=== PATIENT | male | born 1935 | race Caucasian/White ===

== ENCOUNTER 2021-07-31 04:43 | Emergency (ER) | payer OTHER ==
[2021-07-31 05:31] LABS: Urine Blood 3+ (Negative); Urine Glucose Negative (Negative); Urine Protein 2+ (Negative); Urine Specific Gravity >=1.030 (1.005-1.030)
[2021-07-31 06:07] LABS: Urine Bacteria >50 /HPF (NONE SEEN)
[2021-07-31 06:08] LABS: Urine RBC 20-50 /HPF (NONE SEEN); Urine Urothelial Cells <5 /HPF (NONE SEEN)
[2021-07-31] MEDS ORDERED: NA CHLORIDE 0.9% 1,000 ML ONE (06:27)
[2021-07-31] MEDS ORDERED: ACETAMINOPHEN 500 MG TAB ONE (06:27)
[2021-07-31] MEDS ORDERED: CEFTRIAXONE 1000 MG/VIAL ONE (06:27)
[2021-07-31 06:46] LABS: Absolute Lymphocytes (CBC) 0.7 K/uL (0.7-4.9); Basophils % 0.5 % (0-1.3); Hematocrit 46.1 % (39.6-49.0); MPV 8.3 fL (7.6-11.3); RBC Red Blood Cell Count 5.04 M/uL (4.33-5.43)
[2021-07-31 07:01] LABS: ALT/SGPT 27 U/L (12-78); AST/SGOT 16 U/L (15-37); Albumin 4.1 g/dL (3.4-5.0); Alkaline Phosphatase 80 U/L (45-117); BUN Blood Urea Nitrogen 19 mg/dL (7-18); Bicarbonate 27 mmol/L (21-32); Bilirubin Direct 0.2 mg/dL (0-0.2); Bilirubin Total 0.7 mg/dL (0.2-1.0); Glucose Level 125 mg/dL (74-106); Protein, Total 7.5 g/dL (6.4-8.2); Sodium Level 142 mmol/L (136-145)
--- NOTE | 2021-07-31 07:58 | RAD REPORT ---
EXAM DESCRIPTION: CT - Abdomen Pelvis W Contrast - 07/31/2021 7:34 am CLINICAL HISTORY: Abdominal pain/urinary retention COMPARISON: none. TECHNIQUE: Computed axial tomography of the abdomen pelvis was obtained. 100 cc Isovue-300 was admin istered intravenously. Oral contrast was not requested which limits evaluation of bowel. All CT scans are performed using dose optimization technique as appropriate and may include automated exposure control or mA/KV adjustment according to patient size. FINDINGS: The liver, spleen, pancreas, adrenal and kidneys appear unremarkable. There is no evidence of diverticulitis. Moderate amount of stool within the colon. The prostate gland is moderately to markedly enlarged. Chávez catheter within the bladder Small to moderate bilateral inguinal hernias contain fat IMPRESSION: Moderate amount stool within the colon Moderate to marked prostatic enlargement.
--- NOTE | 2021-07-31 08:31 | ER ---
Nurse's Notes [facility] Name: Tom Diaz Age: 85 yrs Sex: Male : 1935 Arrival Date: 07/31/2021 Time: 04:50 Bed 30 Private MD: Diagnosis: UTI/ Urinary tract infection, site not specified Presentation: 07/31 05:02 Chief complaint: Patient states: Urinary retention x 2 days, reports having urology lp1 procedure on 07/28/21 for enlarged prostate; States only drops when attempting to urinate. Coronavirus screen: At this time, the client does not indicate any symptoms associated with coronavirus-19. Ebola Screen: No symptoms or risks identified at this time. Initial Sepsis Screen: Does the patient meet any 2 criteria? No. Patient's initial sepsis screen is negative. Does the patient have a suspected source of infection? No. Patient's initial sepsis screen is negative. Risk Assessment: Do you want to hurt yourself or someone else? Patient reports no desire to harm self or others. Onset of symptoms was July 31, 2021. 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 - Social history:: Smoking status: Patient denies any tobacco usage or history of. Screenin:05 Abuse screen: Denies threats or abuse. Denies injuries from another. Nutritional lp1 screening: No deficits noted. Tuberculosis screening: No symptoms or risk factors identified. 05:15 Fall Risk None identified. cc4 Assessment: 05:15 General: Appears uncomfortable, Behavior is calm, cooperative. Pain: Complains of pain cc4 in pelvis Pain does not radiate. Pain currently is 8 out of 10 on a pain scale. at worst was 8 out of 10 on a pain scale. Quality of pain is described as aching, pressure, Pain began gradually, 2-3 days ago. Is continuous, Alleviated by nothing. 05:15 : Reports inability to void, since Saturday following a scope per urologist; # 16 Fr cc4 lopez catheter inserted as ordered with approx 150 ml cloudy foul smelling yellow urine noted draining to dependent bag, liza. well; reports pressure of pelvic area; Dr. Stephens notified with urine specimen/collected \T\ sent to lab. 05:50 Reassessment: Patient states symptoms have not improved. Temp. increasing to 101.0 F cc4 orally; Dr. Stephens notified with new orders rec'd.. 05:55 Reassessment: Tylenol 1 g given po; drinking gatoraide with no difficulty. cc4 06:25 Reassessment: Patient states symptoms have not improved. Dr. Stephens notified; IV NS cc4 started left AC x 3 attempts \T\ infusing \T\ bolus rate with no s/sx's of infiltration noted of site; bld. drawn \T\ sent to lab; Rocephin 1 g given slow IVP; lopez cath. remains intact \T\ draining pink urine to dependent bag.. 07:50 Reassessment: Patient appears in no apparent distress at this time. Patient and/or bc5 family updated on plan of care and expected duration. Pain level reassessed. Patient is alert, oriented x 3, equal unlabored respirations, skin warm/dry/pink. General: Appears in no apparent distress. comfortable, Behavior is calm, cooperative. Vital Signs: 05:02 BP 134 / 69; Pulse 99; Resp 18; Temp 98.9(TE); Pulse Ox 100% on R/A; Weight 77.56 kg lp1 (R); Height 5 ft. 10 in. (177.80 cm); Pain 8/10; 05:50 BP 130 / 69; Pulse 84; Resp 22; Temp 101(O); Pulse Ox 100% on R/A; cc4 07:50 BP 138 / 98; Pulse 89; Resp 18; Temp 100.3; Pulse Ox 98% ; bc5 05:02 Body Mass Index 24.54 (77.56 kg, 177.80 cm) lp1 ED Course: 04:50 Patient arrived in ED. ja2 04:59 Hiren Stephens MD is Attending Physician. 7 05:04 Triage completed. lp1 05:04 Arm band placed on. lp1 05:06 Patient has correct armband on for positive identification. Placed in gown. lp1 05:37 Anneliese Saha, RN is Primary Nurse. cc4 05:38 Urine Microscopic Only Sent. cc4 06:25 No provider procedures requiring assistance completed. Urine collected: Lopez catheter cc4 specimen, cloudy, pink colored urine. Inserted saline lock: 20 gauge in left antecubital area, using aseptic technique. 06:35 LFT's Sent. cc4 06:35 Basic Metabolic Panel Sent. cc4 06:35 CBC with Diff Sent. cc4 06:35 Urine Culture Sent. cc4 07:34 CT Abd/Pelvis - IV Contrast Only In Process Unspecified. EDMS 07:50 No apparent distress. Resting quietly. bc5 Administered Medications: 05:55 Drug: Tylenol 1000 mg Route: PO; cc4 06:25 Drug: NS 0.9% 1000 ml Route: IV; Rate: 1000 ml; Site: left antecubital; cc4 06:25 Drug: Rocephin (cefTRIAXone) 1 grams Route: IV; Rate: per protocol; Site: left cc4 antecubital; Outcome: 08:31 Discharge ordered by . kb 09:10 Discharged to home ambulatory. bc5 09:10 Condition: stable 09:10 Discharge instructions given to patient, Instructed on discharge instructions, follow up and referral plans. Demonstrated understanding of instructions, follow-up care, medications, Prescriptions given X 1. 09:12 Patient left the ED. 5 Addendum: 08/03/2021 12:48 Addendum: Culture Results: Positive urine culture. No further action required. Bacteria i w sensitive to prescribed antibiotic. Signatures: Dispatcher [employer] EDFL Citlali Taylor, HOSTESS-C HOSTESS-CkAny Garrido, RN RN iw Emiliana Avila RN RN lp1 Hiren Stephens MD MD [facility] Son Anneliese Villanueva, RN RN cc4 Ana Pierce RN RN bc5
--- NOTE | 2021-07-31 08:32 | EDPHYS ---
Physician Documentation [facility] Name: Tom Diaz Age: 85 yrs Sex: Male : 1935 Arrival Date: 07/31/2021 Time: 04:50 Bed 30 Private MD: ED Physician Hiren Stephens HPI: 07/31 05:08 This 85 yrs old Male presents to ER via Ambulatory with complaints of Urinary mh7 Problem. 05:08 The patient presents with urinary symptoms, retention. Onset: The symptoms/episode mh7 began/occurred 2 day(s) ago. Modifying factors: The symptoms are alleviated by nothing, the symptoms are aggravated by nothing. Associated signs and symptoms: Pertinent positives: Urinating small amounts, Pertinent negatives: abdominal pain, constipation, diarrhea, dysuria, fever, hematuria, nausea, vomiting. Severity of symptoms: At their worst the symptoms were moderate, yesterday, in the emergency department the symptoms are unchanged. The patient has been recently seen by a physician: 3 day(s) ago, Urologist. States that he had a procedure to check his prostate done by his urologist 3 days ago. He states that he has only been able to urinate a small amount at a time for the past 2 days. Denies any fever, chest pain, abdominal pain, nausea, vomiting, diarrhea, dizziness, numbness/tingling, or weakness.. 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 - Social history:: Smoking status: Patient denies any tobacco usage or history of. ROS: 05:08 Constitutional: Negative for fever, chills, and weight loss, Eyes: Negative for injury, mh7 pain, redness, and discharge, ENT: Negative for injury, pain, and discharge, Neck: Negative for injury, pain, and swelling, Cardiovascular: Negative for chest pain, palpitations, and edema, Respiratory: Negative for shortness of breath, cough, wheezing, and pleuritic chest pain, Abdomen/GI: Negative for abdominal pain, nausea, vomiting, diarrhea, and constipation, Back: Negative for injury and pain, MS/Extremity: Negative for injury and deformity, Skin: Negative for injury, rash, and discoloration, Neuro: Negative for headache, weakness, numbness, tingling, and seizure, Psych: Negative for depression, anxiety, suicide ideation, homicidal ideation, and hallucinations, Allergy/Immunology: Negative for hives, rash, and allergies, Endocrine: Negative for neck swelling, polydipsia, polyuria, polyphagia, and marked weight changes, Hematologic/Lymphatic: Negative for swollen nodes, abnormal bleeding, and unusual bruising. Exam: 05:08 Constitutional: This is a well developed, well nourished patient who is awake, alert, mh7 and in no acute distress. Head/Face: Normocephalic, atraumatic. Eyes: Pupils equal round and reactive to light, extra-ocular motions intact. Lids and lashes normal. Conjunctiva and sclera are non-icteric and not injected. Cornea within normal limits. Periorbital areas with no swelling, redness, or edema. Neck: Trachea midline, no thyromegaly or masses palpated, and no cervical lymphadenopathy. Supple, full range of motion without nuchal rigidity, or vertebral point tenderness. No Meningismus. Chest/axilla: Normal chest wall appearance and motion. Nontender with no deformity. No lesions are appreciated. Cardiovascular: Regular rate and rhythm with a normal S1 and S2. No gallops, murmurs, or rubs. Normal PMI, no JVD. No pulse deficits. Respiratory: Lungs have equal breath sounds bilaterally, clear to auscultation and percussion. No rales, rhonchi or wheezes noted. No increased work of breathing, no retractions or nasal flaring. Back: No spinal tenderness. No costovertebral tenderness. Full range of motion. Skin: Warm, dry with normal turgor. Normal color with no rashes, no lesions, and no evidence of cellulitis. MS/ Extremity: Pulses equal, no cyanosis. Neurovascular intact. Full, normal range of motion. Neuro: Awake and alert, GCS 15, oriented to person, place, time, and situation. Cranial nerves II-XII grossly intact. Motor strength 5/5 in all extremities. Sensory grossly intact. Cerebellar exam normal. Normal gait. Psych: Awake, alert, with orientation to person, place and time. Behavior, mood, and affect are within normal limits. Vital Signs: 05:02 BP 134 / 69; Pulse 99; Resp 18; Temp 98.9(TE); Pulse Ox 100% on R/A; Weight 77.56 kg lp1 (R); Height 5 ft. 10 in. (177.80 cm); Pain 8/10; 05:50 BP 130 / 69; Pulse 84; Resp 22; Temp 101(O); Pulse Ox 100% on R/A; cc4 07:50 BP 138 / 98; Pulse 89; Resp 18; Temp 100.3; Pulse Ox 98% ; bc5 05:02 Body Mass Index 24.54 (77.56 kg, 177.80 cm) lp1 MDM: 08:30 Data reviewed: vital signs, nurses notes. Data interpreted: Pulse oximetry: on room air kb is 98 %. Interpretation: normal. Counseling: I had a detailed discussion with the patient and/or guardian regarding: the historical points, exam findings, and any diagnostic results supporting the discharge/admit diagnosis, lab results, radiology results, the need for outpatient follow up, a urologist, to return to the emergency department if symptoms worsen or persist or if there are any questions or concerns that arise at home. 08:31 Patient medically screened. kb 08:34 ED course: Pt will call urologist to make follow up appt upon discharge from ER. . kb 07/31 05:22 Order name: Urine Microscopic Only; Complete Time: 06:10 7 07/31 05:30 Order name: Urine Dipstick-Ancillary; Complete Time: 05:45 EDNY 07/31 05:49 Order name: Urine Culture [facility] 07/31 05:49 Order name: CBC with Diff [facility] 07/31 05:49 Order name: Basic Metabolic Panel; Complete Time: 07:08 7 07/31 05:49 Order name: LFT's; Complete Time: 07:08 7 07/31 05:07 Order name: Chávez; Complete Time: 05:38 7 07/31 05:13 Order name: Urine Dipstick-Ancillary (obtain specimen); Complete Time: 05:38 7 07/31 07:10 Order name: CT Abd/Pelvis - IV Contrast Only; Complete Time: 08:27 7 07/31 05:49 Order name: Saline Lock; Complete Time: 06:35 7 07/31 07:25 Order name: Vital Signs; Complete Time: 08:48 kb 07/31 08:32 Order name: Leg Bag; Complete Time: 09:09 kb Administered Medications: 05:55 Drug: Tylenol 1000 mg Route: PO; cc4 06:25 Drug: NS 0.9% 1000 ml Route: IV; Rate: 1000 ml; Site: left antecubital; cc4 06:25 Drug: Rocephin (cefTRIAXone) 1 grams Route: IV; Rate: per protocol; Site: left cc4 antecubital; Disposition Summary: 07/31/21 08:31 Discharge Ordered Location: Home kb Condition: Stable kb Diagnosis - UTI/ Urinary tract infection, site not specified kb Followup: kb - With: Private Physician - When: 2 - 3 days - Reason: Recheck today's complaints, Continuance of care, Re-evaluation by your physician Followup: kb - With: Emergency Department - When: As needed - Reason: Worsening of condition Discharge Instructions: - Discharge Summary Sheet kb - Urinary Tract Infection, Adult, [id number] kb Forms: - Medication Reconciliation Form kb - Thank You Letter kb - Antibiotic Education kb - Prescription Opioid Use kb Prescriptions: - Cipro 500 mg Oral Tablet - take 1 tablet by ORAL route every 12 hours for 10 days; 20 tablet; Refills: 0, kb Product Selection Permitted Signatures: Dispatcher [employer] Citlali Rushing, HELGA-C EVENT MARKETING SPECIALIST-Emiliana Bradley, RN RN lp1 Hiren Stephens MD MD 7 Anneliese Saha RN RN cc4
[2021-07-31 09:21] VITALS: BP 138/98; TEMP 100.3; O2SAT 98
[2021-07-31 10:15] LABS: Blood Morphology Comment NOT SEEN (NOT SEEN); Platelet Estimate ADEQ
== END 2021-07-31 09:12 | disposition home or self-care (01) ==
LOC: ER 04:43
DX: N39.0 Urinary tract infection, site not specified (principal); I10 Essential (primary) hypertension; Z95.1 Presence of aortocoronary bypass graft
CPT/HCPCS: 87088; 85025; 87086; 80048; 36415; 80076; 87077; 87186; 74177; 96374; 99284; Q9967; J7030; 81003; 81015

== ENCOUNTER 2022-03-29 10:18 | Emergency (ER) | payer OTHER ==
--- OUTSIDE RECORDS SUMMARY | 2022-03-29 10:23 | XMS REPORT | Continuity of Care Document ---
:1935 Author Organization [facility] t Address [address] [place] [address] Care Team Providers Name Role Phone Greyson Mcgovern MD Primary Care Physician Himelvina Attending Clinician Unavailable Froilan MCGILL Attending Clinician DOE WOOD Attending Clinician Unavailable Nurse, Pob Immunization Attending Clinician Unavailable Doe Wood DO Attending Clinician Doctor Unassigned, Name Attending Clinician Unavailable LAURITA Attending Clinician Unavailable FROILAN Attending Clinician Unavailable Calderon THURMAN Attending Clinician Unavailable Ace CUNHA S Attending Clinician Larisa BELLO Attending Clinician Unavailable Ebrahicalderon ANNEP Attending Clinician EBRAHIM Attending Clinician Unavailable Lab, Fam Pob I Attending Clinician Unavailable Irene Wheeler MD Attending Clinician Irene WHEELER Attending Clinician Unavailable Bozena PARTIDA T Attending Clinician Anahi SEALS Attending Clinician Unavailable Larisa Mcgovern Admitting Clinician Unavailable Charisse Admitting Clinician Unavailable Anahi SEALS Admitting Clinician Unavailable Payers Payer Name Policy Type Policy Number Effective Date Expiration Date S ource Problems Condition Condition Condition Status Onset Resolution Last Treating Co mments Source Name Details Category Date Date Treatment Clinician Date Dyslipidem Dyslipidem Disease Active 2017-0 U nivers ia ia 4-11 ity of 00:00: [place] 00 Medical Branch Coronary Coronary Disease Active 0 Unive rs artery artery 4-11 ity of disease, disease, 00:00: [place] angina angina 00 Medical presence presence Branch unspecifie unspecifie d, d, unspecifie unspecifie d vessel d vessel or lesion or lesion type, type, unspecifie unspecifie d whether d [place] or transplant transplant ed heart ed heart Allergies, Adverse Reactions, Alerts Allergy Allergy Status Severity Reaction(s) Onset Inactive Treating Comm ents Source Name Type Date Date Clinician No Known DA Active U 2020-10 [facility] [place] [facility] No Known DA Active U 2020-10 [facility] [place] [facility] NO KNOWN Drug Active Univers ALLERGIE Class ity of S [facility] Social History Social Habit Start Date Stop Date Quantity Comments Source Exposure to Not sure [facility] SARS-CoV-2 [facility] (event) Branch Alcohol intake 2020-11-04 2020-11-04 Current University 00:00:00 00:00:00 non-drinker of [facility] alcohol Branch (finding) Tobacco use and 2016-10-02 2016-10-02 Never used Universit y of exposure 00:00:00 00:00:00 [facility] Sex Ass[birth year] At [birth year] [facility] [place] [facility] 00:00:00 00:00:00 Smoking Status Start Date Stop Date Source Unknown if ever smoked [facility] [place] [facility] Never smoker [facility] Medications Ordered Filled Start Stop Current Ordering Indication Dosage Frequency Signature Comments Components Source Medication Medication Date Date Medication? Clinician (SIG) Name Name FINASTERIDE 2020-10 Yes [id number] TAKE 1 Univers 5 mg tablet 12-1000 TABLET BY ity of 00:00: MOUTH [place] 00 EVERY DAY Medical Branch triamcinolo 2020- No [id number] 40mg Univers ne 11-04 [id number] ity of acetonide 16:00: 15:08 [place] (KENALOG) 00 :00 Medical injection Branch 40 mg triamcinolo 2020- No [id number] 40mg 40 mg, Univers ne 11-04 [id number] [facility] ity of acetonide 16:00: 15:08 [place], [place] (KENALOG) 00 :00 ONCE, 1 Medical injection dose, Fri Branc h 40 mg 11/04/20 at 1000, Routine triamcinolo 2020- No [id number] 40mg Univers ne 11-04 [id number] ity of acetonide 16:00: 15:08 [place] (KENALOG) 00 :00 Medical injection Branch 40 mg triamcinolo 2020- No [id number] 40mg 40 mg, Univers ne 11-04 [id number] [facility] ity of acetonide 16:00: 15:08 [place], [place] (KENALOG) 00 :00 ONCE, 1 Medical injection dose, Fri Branc h 40 mg 11/04/20 at 1000, Routine SILODOSIN 4 2020- Yes [id number] TAKE 1 Univers mg Cap 0-15 9100 CAPSULE BY ity of 00:00: MOUTH EVERY DAY Medical Branch SILODOSIN 4 2020-1 Yes [id number] TAKE 1 Univers mg Cap 0-15 9100 CAPSULE BY ity of 00:00: MOUTH [place] EVERY DAY Medical Branch SILODOSIN 4 2020-1 Yes [id number] TAKE 1 Univers mg Cap 0-15 9100 CAPSULE BY ity of 00:00: MOUTH [place] EVERY DAY Medical Branch SILODOSIN 4 2020-1 Yes [id number] TAKE 1 Univers mg Cap 0-15 9100 CAPSULE BY ity of 00:00: MOUTH [place] EVERY DAY Medical Branch SILODOSIN 4 2020-1 Yes [id number] TAKE 1 Univers mg Cap 0-15 9100 CAPSULE BY ity of 00:00: MOUTH [place] EVERY DAY Medical Branch SILODOSIN 4 2020-1 Yes [id number] TAKE 1 Univers mg Cap 0-15 9100 CAPSULE BY ity of 00:00: MOUTH [place] EVERY DAY Medical Branch SILODOSIN 4 2020-1 Yes [id number] TAKE 1 Univers mg Cap 0-15 9100 CAPSULE BY ity of 00:00: MOUTH [place] EVERY DAY Medical Branch SILODOSIN 4 2020-1 Yes [id number] TAKE 1 Univers mg Cap 0-15 9100 CAPSULE BY ity of 00:00: MOUTH [place] EVERY DAY Medical Branch SILODOSIN 4 2020-1 Yes [id number] TAKE 1 Univers mg Cap 0-15 9100 CAPSULE BY ity of 00:00: MOUTH EVERY DAY Medical Branch SILODOSIN 4 2019- Yes [id number] TAKE 1 Univers mg Cap 0-15 9100 CAPSULE BY ity of 00:00: MOUTH EVERY DAY Medical Branch SILODOSIN 4 2019- Yes [id number] TAKE 1 Univers mg Cap 0-15 9100 CAPSULE BY ity of 00:00: MOUTH EVERY DAY Medical Branch SILODOSIN 4 2019- Yes [id number] TAKE 1 Univers mg Cap 0-15 9100 CAPSULE BY ity of 00:00: MOUTH EVERY DAY Medical Branch tamsulosin 2019-10 2020- No .4mg Take 0.4 Un ilda (FLOMAX) 0-14 10-14 mg by ity of 0.4 mg 24 17:43: 00:00 mouth [place] hr capsule 04 :00 daily. Medical Branch tamsulosin 2019-10 2020- No .4mg Take 0.4 Un ilda (FLOMAX) 0-14 10-14 mg by ity of 0.4 mg 24 17:43: 00:00 mouth [place] hr capsule 04 :00 daily. Medical Branch clopidogrel 2019-10 Yes 75mg Take 75 mg Univers (PLAVIX) 75 0-14 by mouth ity of mg tablet 17:28: daily. Medical Branch aspirin 2019-10 Yes 81mg Take 81 mg Univ ers ([facility] 0-14 by mouth ity of ASPIRIN) 81 17:28: [place]. [place] mg [place] Medical tablet Branch METOPROLOL 2019-10 Yes Take by Uni vers TARTRATE 0-14 mouth. ity of (LOPRESSOR 17:28: [place] ORAL) Medical Branch clopidogrel 2019-10 Yes 75mg Take 75 mg Univers (PLAVIX) 75 0-14 by mouth ity of mg tablet 17:28: daily. Medical Branch aspirin 2019-10 Yes 81mg Take 81 mg Univ ers ([facility] 0-14 by mouth ity of ASPIRIN) 81 17:28: daily. [place] mg [place] Medical tablet Branch METOPROLOL 2019-10 Yes Take by Uni vers TARTRATE 0-14 mouth. ity of (LOPRESSOR 17:28: [place] ORAL) Medical Branch clopidogrel 2019-10 Yes 75mg Take 75 mg Univers (PLAVIX) 75 0-14 by mouth ity of mg tablet 17:28: daily. Medical Branch aspirin 2020- Yes 81mg Take 81 mg Univ ers ([facility] 0-14 by mouth ity of ASPIRIN) 81 17:28: daily. [place] 00 Medical tablet Branch METOPROLOL 2019- Yes Take by Uni vers TARTRATE 0-14 mouth. ity of (LOPRESSOR 17:28: [place] ORAL) Medical Branch clopidogrel 2019- Yes 75mg Take 75 mg Univers (PLAVIX) 75 0-14 by mouth ity of mg tablet 17:28: daily. [place] [facility] aspirin 2019- Yes 81mg Take 81 mg Univ ers ([facility] 0-14 by mouth ity of ASPIRIN) 81 17:28: daily. [place] mg [place] 00 Medical tablet Branch METOPROLOL 2019-10 Yes Take by Uni vers TARTRATE 0-14 mouth. ity of (LOPRESSOR 17:28: [place] ORAL) Medical Branch clopidogrel 2019- Yes 75mg Take 75 mg Univers (PLAVIX) 75 0-14 by mouth ity of mg tablet 17:28: daily. [place] [facility] aspirin 2019- Yes 81mg Take 81 mg Univ ers ([facility] 0-14 by mouth ity of ASPIRIN) 81 17:28: daily. [place] mg [place] Medical tablet Branch METOPROLOL 2019-10 Yes Take by Uni vers TARTRATE 0-14 mouth. ity of (LOPRESSOR 17:28: [place] ORAL) Medical Branch clopidogrel 2019- Yes 75mg Take 75 mg Univers (PLAVIX) 75 0-14 by mouth ity of mg tablet 17:28: daily. [place] [facility] Branch aspirin 2020- Yes 81mg Take 81 mg Univ ers ([facility] 0-14 by mouth ity of ASPIRIN) 81 17:28: daily. [place] mg [place] Medical tablet Branch METOPROLOL 2019- Yes Take by Uni vers TARTRATE 0-14 mouth. ity of (LOPRESSOR 17:28: [place] ORAL) Medical Branch clopidogrel 2019- Yes 75mg Take 75 mg Univers (PLAVIX) 75 0-14 by mouth ity of mg tablet 17:28: daily. Medical Branch aspirin 2019- Yes 81mg Take 81 mg Univ ers ([facility] 0-14 by mouth ity of ASPIRIN) 81 17:28: daily. [place] mg [place] 00 Medical tablet Branch METOPROLOL 2019-10 Yes Take by Uni vers TARTRATE 0-14 mouth. ity of (LOPRESSOR 17:28: [place] ORAL) Medical Branch clopidogrel 2019- Yes 75mg Take 75 mg Univers (PLAVIX) 75 0-14 by mouth ity of mg tablet 17:28: daily. Medical Branch aspirin 2019-10 Yes 81mg Take 81 mg Univ ers ([facility] 0-14 by mouth ity of ASPIRIN) 81 17:28: daily. [place] mg EC Medical tablet Branch METOPROLOL 2019-10 Yes Take by Uni vers TARTRATE 0-14 mouth. ity of (LOPRESSOR 17:28: [place] ORAL) Medical Branch clopidogrel 2019- Yes 75mg Take 75 mg Univers (PLAVIX) 75 0-14 by mouth ity of mg tablet 17:28: daily. Medical Branch aspirin 2019-10 Yes 81mg Take 81 mg Univ ers ([facility] 0-14 by mouth ity of ASPIRIN) 81 17:28: daily. [place] mg [place] Medical tablet Branch METOPROLOL 2019-10 Yes Take by Uni vers TARTRATE 0-14 mouth. ity of (LOPRESSOR 17:28: [place] ORAL) Medical Branch clopidogrel 2019-10 Yes 75mg Take 75 mg Univers (PLAVIX) 75 0-14 by mouth ity of mg tablet 17:28: daily. Medical Branch aspirin 2019- Yes 81mg Take 81 mg Univ ers ([facility] 0-14 by mouth ity of ASPIRIN) 81 17:28: daily. [place] mg [place] Medical tablet Branch METOPROLOL 2019-10 Yes Take by Uni vers TARTRATE 0-14 mouth. ity of (LOPRESSOR 17:28: [place] ORAL) Medical Branch clopidogrel 2019- Yes 75mg Take 75 mg Univers (PLAVIX) 75 0-14 by mouth ity of mg tablet 17:28: daily. Medical Branch aspirin 2019- Yes 81mg Take 81 mg Univ ers ([facility] 0-14 by mouth ity of ASPIRIN) 81 17:28: daily. [place] mg [place] Medical tablet Branch METOPROLOL 2019-10 Yes Take by Uni vers TARTRATE 0-14 mouth. ity of (LOPRESSOR 17:28: [place] ORAL) Medical Branch clopidogrel 2019- Yes 75mg Take 75 mg Univers (PLAVIX) 75 0-14 by mouth ity of mg tablet 12:28: daily. Medical Branch aspirin 2019- Yes 81mg Take 81 mg Univ ers ([facility] 0-14 by mouth ity of ASPIRIN) 81 12:28: daily. [place] mg [place] 00 Medical tablet Branch METOPROLOL 2019-10 Yes Take by Uni vers TARTRATE 0-14 mouth. ity of (LOPRESSOR 12:28: [place] ORAL) Medical Branch clopidogrel 2019-10 Yes 75mg Take 75 mg Univers (PLAVIX) 75 0-14 by mouth ity of mg tablet 12:28: daily. Medical Branch aspirin 2019-10 Yes 81mg Take 81 mg Univ ers ([facility] 0-14 by mouth ity of ASPIRIN) 81 12:28: daily. [place] mg [place] Medical tablet Branch METOPROLOL 2019-10 Yes Take by Uni vers TARTRATE 0-14 mouth. ity of (LOPRESSOR 12:28: [place] ORAL) Medical Branch clopidogrel 2019-10 Yes 75mg Take 75 mg Univers (PLAVIX) 75 0-14 by mouth ity of mg tablet 12:28: daily. Medical Branch aspirin 2019-10 Yes 81mg Take 81 mg Univ ers ([facility] 0-14 by mouth ity of ASPIRIN) 81 12:28: daily. [place] mg EC Medical tablet Branch METOPROLOL 2019-10 Yes Take by Uni vers TARTRATE 0-14 mouth. ity of (LOPRESSOR 12:28: [place] ORAL) 00 Medical Branch Silodosin 2019-10 Yes [id number] 1{capsu Take 1 Univers (RAPAFLO) 4 0-14 9100 le} capsule by it y of mg Cap 00:00: mouth [place] 00 daily. Medical Branch Silodosin 2019- Yes [id number] 1{capsu Take 1 Univers (RAPAFLO) 4 0-14 9100 le} capsule by it y of mg Cap 00:00: mouth [place] 00 daily. Medical Branch Silodosin 2019-10 2020- No [id number] 1{capsu Take 1 Univers (RAPAFLO) 4 0-14 10-15 9100 le} capsule by i ty of mg Cap 00:00: 00:00 mouth [place] 00 :00 daily. Medical Branch clopidogrel 2017-0 Yes 75mg Take 75 mg Univers (PLAVIX) 75 8-16 by mouth ity of mg tablet 19:09: daily. [place] 55 Medical Branch aspirin 2017-0 Yes 81mg Take 81 mg Univ ers ([facility] [place] 8-16 by mouth ity of ASPIRIN) 81 19:09: daily. [place] mg EC 55 Medical tablet Branch tamsulosin 2017-0 Yes .4mg Take 0.4 Uni vers (FLOMAX) 8-16 mg by ity of 0.4 mg 24 19:09: mouth [place] hr capsule 55 daily. Medical Branch METOPROLOL 2016-0 Yes Take by Uni vers TARTRATE 8-16 mouth. ity of (LOPRESSOR 19:09: [place] ORAL) 55 Medical Branch clopidogrel 2016-0 Yes 75mg Take 75 mg Univers (PLAVIX) 75 8-16 by mouth ity of mg tablet 19:09: daily. [place] [address] Medical Branch aspirin 2016-0 Yes 81mg Take 81 mg Univ ers ([facility] [place] 8-16 by mouth ity of ASPIRIN) 81 19:09: daily. [place] mg [place] 55 Medical tablet Branch tamsulosin 2016- Yes .4mg Take 0.4 Uni vers (FLOMAX) 8-16 mg by ity of 0.4 mg 24 19:09: mouth [place] hr capsule 55 daily. Medical Branch METOPROLOL 2016-0 Yes Take by Uni vers TARTRATE 8-16 mouth. ity of (LOPRESSOR 19:09: [place] ORAL) 55 Medical Branch clopidogrel 2016-0 Yes 75mg Take 75 mg Univers (PLAVIX) 75 8-16 by mouth ity of mg tablet 19:09: daily. [place] [address] Medical Branch aspirin 2016-0 Yes 81mg Take 81 mg Univ ers ([facility] [place] 8-16 by mouth ity of ASPIRIN) 81 19:09: daily. [place] mg EC 55 Medical tablet Branch tamsulosin 2017-0 Yes .4mg Take 0.4 Uni vers (FLOMAX) 8-16 mg by ity of 0.4 mg 24 19:09: mouth [place] hr capsule 55 daily. Medical Branch METOPROLOL 2017-0 Yes Take by Uni vers TARTRATE 8-16 mouth. ity of (LOPRESSOR 19:09: [place] ORAL) 55 Medical Branch clopidogrel 2016-0 Yes 75mg Take 75 mg Univers (PLAVIX) 75 8-16 by mouth ity of mg tablet 19:09: daily. [place] [address] Medical Branch aspirin 2017-0 Yes 81mg Take 81 mg Univ ers ([facility] [place] 8-16 by mouth ity of ASPIRIN) 81 19:09: daily. [place] mg EC 55 Medical tablet Branch tamsulosin Yes .4mg Take 0.4 Uni vers (FLOMAX) 8-16 mg by ity of 0.4 mg 24 19:09: mouth [place] hr capsule 55 daily. Medical Branch METOPROLOL Yes Take by Uni vers TARTRATE 8-16 mouth. ity of (LOPRESSOR 19:09: [place] ORAL) 55 Medical Branch clopidogrel Yes 75mg Take 75 mg Univers (PLAVIX) 75 8-16 by mouth ity of mg tablet 19:09: daily. [place] [address] Medical Branch aspirin Yes 81mg Take 81 mg Univ ers ([facility] [place] 8-16 by mouth ity of ASPIRIN) 81 19:09: daily. [place] mg EC 55 Medical tablet Branch tamsulosin Yes .4mg Take 0.4 Uni vers (FLOMAX) 8-16 mg by ity of 0.4 mg 24 19:09: mouth [place] hr capsule 55 daily. Medical Branch METOPROLOL Yes Take by Uni vers TARTRATE 8-16 mouth. ity of (LOPRESSOR 19:09: [place] ORAL) 55 Medical Branch simvastatin Yes 40mg Take 40 mg Univers 40 mg 4-22 by mouth ity of tablet 00:00: daily. [facility] Branch finasteride Yes 5mg Take 5 mg U nivers 5 mg tablet 4-22 by mouth ity of 00:00: daily. [facility] Branch simvastatin Yes 40mg Take 40 mg Univers 40 mg 4-22 by mouth ity of tablet 00:00: daily. [facility] Branch finasteride Yes 5mg Take 5 mg U nivers 5 mg tablet 4-22 by mouth ity of 00:00: daily. Medical Branch simvastatin Yes 40mg Take 40 mg Univers 40 mg 4-22 by mouth ity of tablet 00:00: daily. [facility] Branch finasteride Yes 5mg Take 5 mg U nivers 5 mg tablet 4-22 by mouth ity of 00:00: daily. [facility] simvastatin Yes 40mg Take 40 mg Univers 40 mg 4-22 by mouth ity of tablet 00:00: daily. [facility] finasteride 2017-0 Yes 5mg Take 5 mg U nivers 5 mg tablet 4-22 by mouth ity of 00:00: daily. [place] [facility] simvastatin 2017-0 Yes 40mg Take 40 mg Univers 40 mg 4-22 by mouth ity of tablet 00:00: daily. [place] [facility] finasteride 2017-0 Yes 5mg Take 5 mg U nivers 5 mg tablet 4-22 by mouth ity of 00:00: daily. [place] [facility] simvastatin 2017-0 Yes 40mg Take 40 mg Univers 40 mg 4-22 by mouth ity of tablet 00:00: daily. [place] [facility] finasteride 2017-0 Yes 5mg Take 5 mg U nivers 5 mg tablet 4-22 by mouth ity of 00:00: daily. [place] [facility] simvastatin 2017-0 Yes 40mg Take 40 mg Univers 40 mg 4-22 by mouth ity of tablet 00:00: daily. [place] [facility] finasteride 2017-0 Yes 5mg Take 5 mg U nivers 5 mg tablet 4-22 by mouth ity of 00:00: daily. [place] [facility] simvastatin 2017-0 Yes 40mg Take 40 mg Univers 40 mg 4-22 by mouth ity of tablet 00:00: daily. [place] [facility] finasteride 2017-0 Yes 5mg Take 5 mg U nivers 5 mg tablet 4-22 by mouth ity of 00:00: daily. [place] [facility] simvastatin 2017-0 Yes 40mg Take 40 mg Univers 40 mg 4-22 by mouth ity of tablet 00:00: daily. [place] [facility] finasteride 2017-0 Yes 5mg Take 5 mg U nivers 5 mg tablet 4-22 by mouth ity of 00:00: daily. [place] [facility] simvastatin 2017-0 Yes 40mg Take 40 mg Univers 40 mg 4-22 by mouth ity of tablet 00:00: daily. [address] finasteride 2017-0 Yes 5mg Take 5 mg U nivers 5 mg tablet 4-22 by mouth ity of 00:00: daily. [place] [facility] simvastatin 2017-0 Yes 40mg Take 40 mg Univers 40 mg 4-22 by mouth ity of tablet 00:00: daily. [address] finasteride 2017-0 Yes 5mg Take 5 mg U nivers 5 mg tablet 4-22 by mouth ity of 00:00: daily. [address] simvastatin 2017-0 Yes 40mg Take 40 mg Univers 40 mg 4-22 by mouth ity of tablet 00:00: daily. [address] finasteride 2017-0 Yes 5mg Take 5 mg U nivers 5 mg tablet 4-22 by mouth ity of 00:00: daily. [place] [facility] simvastatin 2017-0 Yes 40mg Take 40 mg Univers 40 mg 4-22 by mouth ity of tablet 00:00: daily. [place] [facility] finasteride 2017-0 Yes 5mg Take 5 mg U nivers 5 mg tablet 4-22 by mouth ity of 00:00: daily. [place] [facility] simvastatin 2017-0 Yes 40mg Take 40 mg Univers 40 mg 4-22 by mouth ity of tablet 00:00: daily. [place] [facility] simvastatin 2017-0 Yes 40mg Take 40 mg Univers 40 mg 4-22 by mouth ity of tablet 00:00: daily. [address] finasteride 2017-0 Yes 5mg Take 5 mg U nivers 5 mg tablet 4-22 by mouth ity of 00:00: daily. [place] [facility] simvastatin 2017-0 Yes 40mg Take 40 mg Univers 40 mg 4-22 by mouth ity of tablet 00:00: daily. [address] finasteride 2017-0 Yes 5mg Take 5 mg U nivers 5 mg tablet 4-22 by mouth ity of 00:00: daily. [place] [facility] simvastatin 2017-0 Yes 40mg Take 40 mg Univers 40 mg 4-22 by mouth ity of tablet 00:00: daily. [address] finasteride 2017-0 Yes 5mg Take 5 mg U nivers 5 mg tablet 4-22 by mouth ity of 00:00: daily. [place] [facility] simvastatin 2017-0 Yes 40mg Take 40 mg Univers 40 mg 4-22 by mouth ity of tablet 00:00: daily. [address] finasteride 2017-0 Yes 5mg Take 5 mg U nivers 5 mg tablet 4-22 by mouth ity of 00:00: daily. [address] simvastatin 2017-0 Yes 40mg Take 40 mg Univers 40 mg 4-22 by mouth ity of tablet 00:00: daily. [address] finasteride 2017-0 Yes 5mg Take 5 mg U nivers 5 mg tablet 4-22 by mouth ity of 00:00: daily. [place] 00 Medical Branch finasteride 2017-0 1- No 5mg Take 5 mg Univers 5 mg tablet 4-22 12-13 by mouth ity of 00:00: 00:00 daily. [place] 00 :00 Medical Branch LORATADINE 2016-0 Yes TAKE 1 Unive rs 10 mg 3-13 TABLET BY ity of tablet 00:00: MOUTH EVERY DAY Medical Branch LORATADINE 0 Yes TAKE 1 Unive rs 10 mg 3-13 TABLET BY ity of tablet 00:00: MOUTH [place] 00 EVERY DAY Medical Branch LORATADINE 0 Yes TAKE 1 Unive rs 10 mg 3-13 TABLET BY ity of tablet 00:00: MOUTH [place] EVERY DAY Medical Branch LORATADINE 0 Yes TAKE 1 Unive rs 10 mg 3-13 TABLET BY ity of tablet 00:00: MOUTH [place] 00 EVERY DAY Medical Branch LORATADINE 0 Yes TAKE 1 Unive rs 10 mg 3-13 TABLET BY ity of tablet 00:00: MOUTH [place] 00 EVERY DAY Medical Branch LORATADINE 0 Yes TAKE 1 Unive rs 10 mg 3-13 TABLET BY ity of tablet 00:00: MOUTH [place] 00 EVERY DAY Medical Branch LORATADINE 0 Yes TAKE 1 Unive rs 10 mg 3-13 TABLET BY ity of tablet 00:00: MOUTH [place] 00 EVERY DAY Medical Branch LORATADINE 0 Yes TAKE 1 Unive rs 10 mg 3-13 TABLET BY ity of tablet 00:00: MOUTH [place] 00 EVERY DAY Medical Branch LORATADINE 2016-0 Yes TAKE 1 Unive rs 10 mg 3-13 TABLET BY ity of tablet 00:00: MOUTH [place] 00 EVERY DAY Medical Branch LORATADINE 2016-0 Yes TAKE 1 Unive rs 10 mg 3-13 TABLET BY ity of tablet 00:00: MOUTH [place] 00 EVERY DAY Medical Branch LORATADINE 2016-0 Yes TAKE 1 Unive rs 10 mg 3-13 TABLET BY ity of tablet 00:00: MOUTH [place] 00 EVERY DAY Medical Branch LORATADINE 0 Yes TAKE 1 Unive rs 10 mg 3-13 TABLET BY ity of tablet 00:00: MOUTH [place] 00 EVERY DAY Medical Branch LORATADINE 2016-0 Yes TAKE 1 Unive rs 10 mg 3-13 TABLET BY ity of tablet 00:00: MOUTH [place] 00 EVERY DAY Medical Branch LORATADINE [id number] Yes TAKE 1 Unive rs 10 mg 3-13 TABLET BY ity of tablet 00:00: MOUTH [place] 00 EVERY DAY Medical Branch LORATADINE 0 Yes TAKE 1 Unive rs 10 mg 3-13 TABLET BY ity of tablet 00:00: MOUTH [place] 00 EVERY DAY Medical Branch LORATADINE 0 Yes TAKE 1 Unive rs 10 mg 3-13 TABLET BY ity of tablet 00:00: MOUTH [place] 00 EVERY DAY Medical Branch LORATADINE 0 Yes TAKE 1 Unive rs 10 mg 3-13 TABLET BY ity of tablet 00:00: MOUTH [place] 00 EVERY DAY Medical Branch LORATADINE 0 Yes TAKE 1 Unive rs 10 mg 3-13 TABLET BY ity of tablet 00:00: MOUTH [place] 00 EVERY DAY Medical Branch LORATADINE 0 Yes TAKE 1 Unive rs 10 mg 3-13 TABLET BY ity of tablet 00:00: MOUTH [place] 00 EVERY DAY Medical Branch fluticasone 2015-10 Yes [id number] 1-2 sprays Univers (FLONASE) 2-06 in each ity of 50 00:00: nostril [place] mcg/actuati 00 daily Medical on nasal Branch spray fluticasone 2015-10 Yes [id number] 1-2 sprays Univers (FLONASE) 2-06 in each ity of 50 00:00: nostril [place] mcg/actuati 00 daily Medical on nasal Branch spray fluticasone 2015-10 Yes [id number] 1-2 sprays Univers (FLONASE) 2-06 in each ity of 50 00:00: nostril [place] mcg/actuati 00 daily Medical on nasal Branch spray fluticasone 2015-10 Yes [id number] 1-2 sprays Univers (FLONASE) 2-06 in each ity of 50 00:00: nostril [place] mcg/actuati 00 daily Medical on nasal Branch spray fluticasone 2015-10 Yes [id number] 1-2 sprays Univers (FLONASE) 2-06 in each ity of 50 00:00: nostril [place] mcg/actuati 00 daily Medical on nasal Branch spray fluticasone 2015-10 Yes [id number] 1-2 sprays Univers (FLONASE) 2-06 in each ity of 50 00:00: nostril [place] mcg/actuati 00 daily Medical on nasal Branch spray fluticasone 2015-10 Yes [id number] 1-2 sprays Univers (FLONASE) 2-06 in each ity of 50 00:00: nostril [place] mcg/actuati 00 daily Medical on nasal Branch spray fluticasone 2015-10 Yes [id number] 1-2 sprays Univers (FLONASE) 2-06 in each ity of 50 00:00: nostril [place] mcg/actuati 00 daily Medical on nasal Branch spray fluticasone 2015-10 Yes [id number] 1-2 sprays Univers (FLONASE) 2-06 in each ity of 50 00:00: nostril [place] mcg/actuati 00 daily Medical on nasal Branch spray fluticasone 2015-10 Yes [id number] 1-2 sprays Univers (FLONASE) 2-06 in each ity of 50 00:00: nostril [place] mcg/actuati 00 daily Medical on nasal Branch spray fluticasone 2015-10 Yes [id number] 1-2 sprays Univers (FLONASE) 2-06 in each ity of 50 00:00: nostril [place] mcg/actuati 00 daily Medical on nasal Branch spray fluticasone 2015-10 Yes [id number] 1-2 sprays Univers (FLONASE) 2-06 in each ity of 50 00:00: nostril [place] mcg/actuati 00 daily Medical on nasal Branch spray fluticasone 2015-10 Yes [id number] 1-2 sprays Univers (FLONASE) 2-06 in each ity of 50 00:00: nostril [place] mcg/actuati 00 daily Medical on nasal Branch spray fluticasone 2015-10 Yes [id number] 1-2 sprays Univers (FLONASE) 2-06 in each ity of 50 00:00: nostril [place] mcg/actuati 00 daily Medical on nasal Branch spray fluticasone 2015-10 Yes [id number] 1-2 sprays Univers (FLONASE) 2-06 in each ity of 50 00:00: nostril [place] mcg/actuati 00 daily Medical on nasal Branch spray fluticasone 2015-10 Yes [id number] 1-2 sprays Univers (FLONASE) 2-06 in each ity of 50 00:00: nostril [place] mcg/actuati 00 daily Medical on nasal Branch spray fluticasone 2015-10 Yes [id number] 1-2 sprays Univers (FLONASE) 2-06 in each ity of 50 00:00: nostril [place] mcg/actuati 00 daily Medical on nasal Branch spray fluticasone 2015-10 Yes [id number] 1-2 sprays Univers (FLONASE) 2-06 in each ity of 50 00:00: nostril [place] mcg/actuati 00 daily Medical on nasal Branch spray fluticasone 2015-10 Yes [id number] 1-2 sprays Univers (FLONASE) 2-06 in each ity of 50 00:00: nostril [place] mcg/actuati 00 daily Medical on nasal Branch spray Immunizations Ordered Filled Immunization Date Status Comments [facility] e Immunization Name Name SARS-COV-2 COVID-19 2021-09-26 Completed Unive rsity of MODERNA BOOSTER 00:00:00 [place] Med ical VACCINE Branch SARS-COV-2 COVID-19 2021-09-26 Completed Unive rsity of MODERNA BOOSTER 00:00:00 [place] Med ical VACCINE Branch SARS-COV-2 COVID-19 2020-11-30 Completed Unive rsity of MODERNA VACCINE 00:00:00 [place] Med ical Branch SARS-COV-2 COVID-19 2020-11-30 Completed Unive rsity of MODERNA VACCINE 00:00:00 [place] Med ical Branch SARS-COV-2 COVID-19 2020-11-30 Completed Unive rsity of MODERNA VACCINE 00:00:00 [place] Med ical Branch SARS-COV-2 COVID-19 2020-11-30 Completed Unive rsity of MODERNA VACCINE 00:00:00 [place] Med ical Branch SARS-COV-2 COVID-19 2020-11-30 Completed Unive rsity of MODERNA VACCINE 00:00:00 [place] Med ical Branch SARS-COV-2 COVID-19 2020-11-30 Completed Unive rsity of MODERNA VACCINE 00:00:00 [place] Med ical Branch SARS-COV-2 COVID-19 2020-11-02 Completed Unive rsity of MODERNA VACCINE 00:00:00 [place] Med ical Branch SARS-COV-2 COVID-19 2020-11-02 Completed Unive rsity of MODERNA VACCINE 00:00:00 [place] Med ical Branch SARS-COV-2 COVID-19 2020-11-02 Completed Unive rsity of MODERNA VACCINE 00:00:00 [place] Med [facility] Branch SARS-COV-2 COVID-19 2020-11-02 Completed Unive rsity of MODERNA VACCINE 00:00:00 [place] Med [facility] Branch SARS-COV-2 COVID-19 2020-11-02 Completed Unive rsity of MODERNA VACCINE 00:00:00 [place] Med ical Branch SARS-COV-2 COVID-19 2020-11-02 Completed Unive rsity of MODERNA VACCINE 00:00:00 [place] Med ical Branch SARS-COV-2 COVID-19 2020-11-02 Completed Unive rsity of MODERNA VACCINE 00:00:00 [place] [facility] SARS-COV-2 COVID-19 2020-11-02 Completed Unive rsity of MODERNA VACCINE 00:00:00 [place] Med ical Branch Pneumococcal 2020-08-10 Completed University o f Polysaccharide, 00:00:00 [place] Med ical PPSV23 (PNEUMOVAX) Branch Pneumococcal 2020-08-10 Completed University o f Polysaccharide, 00:00:00 [place] Med ical PPSV23 (PNEUMOVAX) Branch Pneumococcal 2020-08-10 Completed University o f Polysaccharide, 00:00:00 [place] Med ical PPSV23 (PNEUMOVAX) Branch Pneumococcal 2020-08-10 Completed University o f Polysaccharide, 00:00:00 [place] Med ical PPSV23 (PNEUMOVAX) Branch Pneumococcal 2020-08-10 Completed University o f Polysaccharide, 00:00:00 [place] Med ical PPSV23 (PNEUMOVAX) Branch Pneumococcal 2020-08-10 Completed University o f Polysaccharide, 00:00:00 [place] Med ical PPSV23 (PNEUMOVAX) Branch Pneumococcal 2020-08-10 Completed University o f Polysaccharide, 00:00:00 [place] Med ical PPSV23 (PNEUMOVAX) Branch Pneumococcal 2020-08-10 Completed University o f Polysaccharide, 00:00:00 [place] Med ical PPSV23 (PNEUMOVAX) Branch Pneumococcal 2020-08-10 Completed University o f Polysaccharide, 00:00:00 [place] Med ical PPSV23 (PNEUMOVAX) Branch Pneumococcal 2020-08-10 Completed University o f Polysaccharide, 00:00:00 [place] Med ical PPSV23 (PNEUMOVAX) Branch Pneumococcal 2020-08-10 Completed University o f Polysaccharide, 00:00:00 [place] Med ical PPSV23 (PNEUMOVAX) Branch Pneumococcal 2020-08-10 Completed University o f Polysaccharide, 00:00:00 [place] Med ical PPSV23 (PNEUMOVAX) Branch Pneumococcal 2020-08-10 Completed University o f Polysaccharide, 00:00:00 [place] Med ical PPSV23 (PNEUMOVAX) Branch Pneumococcal 2020-08-10 Completed University o f Polysaccharide, 00:00:00 [place] Med ical PPSV23 (PNEUMOVAX) Branch Vital Signs Vital Name Observation Time Observation Value Comments Source Systolic blood 2021-04-25 12:53:00 112 mm[Hg] Univer sity of [facility] Diastolic blood 2021-04-25 12:53:00 60 mm[Hg] Unive rsity of [facility] Body weight 2021-04-25 12:53:00 77.565 kg [facility] BMI 2021-04-25 12:53:00 24.54 kg/m2 [facility] Systolic blood 2020-11-04 14:52:00 137 mm[Hg] Univer sity of [facility] Diastolic blood 2020-11-04 14:52:00 82 mm[Hg] Unive rsity of [facility] Heart rate 2020-11-04 14:52:00 75 /min [facility] Body height 2020-11-04 14:52:00 177.8 cm [facility] Body weight 2020-11-04 14:52:00 77.111 kg [facility] BMI 2020-11-04 14:52:00 24.39 kg[facility] weight 2020-08-10 17:20:[address] [facility] BMI 2020-08-10 17:20:00 24.39 kg/m2 [facility] Systolic blood 2020-08-10 17:20:00 134 mm[Hg] Univer sity of [facility] Diastolic blood 2020-08-10 17:20:00 62 mm[Hg] Unive rsity of [facility] [place] [facility] Systolic blood 2020-04-04 21:03:00 110 mm[Hg] Univer sity of [facility] [place] [facility] Diastolic blood 2020-04-04 21:03:00 63 mm[Hg] Unive rsity of [facility] [place] [facility] Respiratory rate 2020-04-04 21:03:00 18 /min Univ ersity of [facility] Branch Body height 2020-04-04 21:03:00 177.8 cm [facility] [place] [facility] Body weight 2020-04-04 21:03:00 77.111 kg [facility] [place] [facility] BMI 2020-04-04 21:03:00 24.39 kg/m2 [facility] [place] [facility] Systolic blood 2020-02-11 18:48:00 129 mm[Hg] Univer sity of [facility] [place] [facility] Diastolic blood 2020-02-11 18:48:00 64 mm[Hg] Unive rsity of [facility] Branch Heart rate 2020-02-11 18:48:00 52 /min [facility] [place] [facility] Body temperature 2020-02-11 18:48:00 36.44 Dena [address] [address] [facility] Branch Respiratory rate 2020-02-11 18:48:00 15 /min Univ ersity of [facility] Branch Body height 2020-02-11 18:48:00 177.8 cm [facility] [place] [facility] Body weight 2020-02-11 18:48:00 77.111 kg [facility] [place] [facility] BMI 2020-02-11 18:48:00 24.39 kg/m2 [facility]i ty of [facility] Branch Oxygen saturation in 2020-02-11 18:48:00 98 /min [facility] Arterial blood by [facility] Pulse oximetry Branch Procedures Procedure Date / Time Performing Clinician Source Performed SARS-COV-2 COVID-19 2021-09-26 17:46:20 Doctor Unassigned, No Un iversity of [place] VACCINE Name Medical Branch BOOSTER,0.25ML,IM (MODERNA) [id number] 2021-08-11 00:00:00 GURPREET JUNIOR [facility] EXTERNAL PROVIDER 2021-08-09 05:01:00 Doctor Unassigned, No Univ ersity of [place] RECORDS Name Medical Branch PNEUMOCOCCAL VACCINE, 2020-08-10 17:50:53 Krystyna Mcgovern [facility] 23-VALENT (PNEUMOVAX) Medical Br anch XR SHOULDER 2+ VW RIGHT 2020-02-11 19:10:28 Phu Seals [facility] Plan of Care Planned Activity Planned Date Details Comments Source Future Scheduled Test 65+ PNEUMOCOCCAL [facility] VACCINE (1 of 2 - PPSV23) [code = 65+ PNEUMOCOCCAL VACCINE (1 of 2 - PPSV23)] Future Scheduled Test COVID-19 VACCINE (1) [facility] [code = COVID-19 VACCINE (1)] Future Scheduled Test SHINGLES VACCINES (#1) [facility] [code = SHINGLES VACCINES (#1)] Future Scheduled Test INFLUENZA VACCINE [code [facility] = INFLUENZA VACCINE] Encounters Start End Encounter Admission Attending Care Care Encounter Source Date/Time Date/Time Type Type Clinicians Facility Department ID 2021-08-18 [facility] [id number] [facility] 13:00:00 [id number] [facility] [place] 2021-08-11 [facility] [id number] [facility] 12:00:00 [id number] [facility] [place] 2021-08-09 Inpatient EL [facility] [id number] [facility] 10:00:00 [id number] [facility] [place] 2021-10-07 2021-10-07 Pablo Mcgovern [facility] [id number] Univers 00:00:00 00:00:00 [facility] [id number] it [place] [id number] Patrice as PROFESSIO [phone] [address] OFFICE BUILDING ONE 2021-09-26 2021-09-26 Outpatient R NINA [facility] [id number] Univers 15:40:00 10:07:26 BAM mosley [facility] 2021-09-26 2021-09-26 Imm/Inj Nurse, Adc Pob Immunization [facility] 1.2.840.114 [id number] Univers 10:07:18 10:07:26 Visit Bam Wood 350.1.13 .10 melany [id number] [place] PROF[place] [phone] Me dical NAL [address] BUILDING 2021-08-11 2021-08-12 Inpatient EL Brandan Mcqueen HCAPM MEDI.01 LA00 [id number] [facility] 12:39:00 12:19:00 55 Joselin matthew [facility] 2021-08-09 2021-08-09 Orders Doctor LEXY 1.2.840.114 [id number] Univers 00:00:00 00:00:00 Only Unassigned, CONG [id number] ity of [facility] [id number] Patrice as [phone] Medi jennifer [address] 2021-06-08 2021-06-08 [facility] [id number] Univers 09:00:00 09:00:00 MICHELLE [id number] ity [facility] 2021-04-25 2021-04-25 [facility] 1.2.840.114 [id number] Univers 07:49:35 08:04:35 Visit Krystynaformerly [facility] [id number] it y of [place] [id number] Patrice as Professio [phone] Al dical nal [address] One 2021-04-25 2021-04-25 [facility] [id number] Univers 08:00:00 08:00:00 KRYSTYNA [id number] ity [facility] 2021-04-25 2021-04-25 Outpatient Aleja MCGOVERN [facility] [id number] Univers 08:00:00 08:00:00 KRYSTYNA ity [facility] 2020-11-30 2020-11-30 Outpatient [facility] [id number] Univers 13:40:00 13:40:00 [id number] ity [facility] 2020-11-30 2020-11-30 Outpatient Aleja THURMAN [facility] [id number] Univers 13:40:00 13:40:00 ASIA ity [facility] 2020-11-04 2020-11-04 Office [facility] 1.2.840.114 [id number] Univers 08:39:51 08:54:51 Visit [facility] [id number] it y of Surgical [id number] Patrice as Specialti [phone] Me dical es [address] [place] 2020-11-04 2020-11-04 Outpatient R BELLO, [facility] [id number] Univers 08:45:00 08:45:00 THOMPSON [id number] ity [facility] 2020-11-04 2020-11-04 [facility] [id number] Univers 08:45:00 08:45:00 [facility] 2020-11-02 2020-11-02 Outpatient R CUCA, [facility] [id number] Univers 13:50:00 13:50:00 ASIA [id number] [facility] 2020-11-02 2020-11-02 Outpatient [facility] [id number] Univers 13:50:00 13:50:00 ASIA [facility] 2020-10-14 2020-10-14 Telephone [facility] 1..[id number] [id number] Univers 00:00:00 00:00:00 [facility] [id number] it y of [place] [id number] Patrice as Professio [phone] Al dical [facility] [address] Office Building One 2020-10-12 2020-10-12 Telephone [facility] 1..840.114 [id number] Univers 00:00:00 00:00:[address] [facility] [id number] it y of [place] [id number] [facility] [phone] [facility] Branch Specialty Care 2020-10-11 2020-10-11 Outpatient R [facility] [id number] Univers 19:20:00 19:20:00 [id number] ity [facility] 2020-10-11 2020-10-11 Outpatient [facility] [id number] Univers 19:20:00 19:20:00 WAYLON [facility] 2020-10-11 2020-10-11 Laboratory Lab, Adc Fam Pob I [facility] 1.. 840.114 [id number] Univers 18:37:09 18:57:09 Only Waylon Johnson [facility] [id number] ity of [place] [id number] Patrice as Professio [phone] Al dical nal [address] [facility] 2020-08-10 2020-08-10 Office [facility] 1.2.840.114 [id number] Univers 12:13:25 13:12:39 Visit [facility] [id number] it y of [place] [id number] Patrice as Professio [phone] Al dicnh nal [address] [facility] 2020-08-10 2020-08-10 Out[facility] [id number] Univers 12:30:00 12:30:00 KRYSTYNA [id number] [facility] 2020-08-10 2020-08-10 Outpatient [facility] [id number] Univers 12:30:00 12:30:00 [facility] 2020-08-10 2020-08-10 Refill [facility] 1.2.840.114 [id number] Univers 00:00:00 00:00:00 [facility] [id number] it y of [place] [id number] Patrice as Professio [phone] [facility] [address] [place] [facility] 2020-04-04 2020-04-04 Office [facility] 1.2.679.276 [id number] Univers 15:59:19 16:40:47 Visit [facility] [id number] it y of Surgical [id number] Patrice as Specialti [phone] [facility] [address] [facility] 2020-04-04 2020-04-04 Outpatient [facility] [id number] Univers 16:15:00 16:15:00 NENA [facility] 2020-04-04 2020-04-04 Outpatient [facility] [id number] Univers 16:15:00 16:15:00 NENA [facility] 2020-02-11 2020-02-11 Emergency Bozena, Phu [facility] 1.2.840.114 [id number] Univers 13:49:46 15:24:00 T Virgie 350.1.13.10 i ty of [place] 4.2.7.2.686 [facility] [phone] [address] 2020-02-11 2020-02-11 Emergency X PHU SEALS [facility] ERT [id number] Univers 13:49:46 15:24:00 ity of [facility] 2020-02-11 2020-02-11 Telephone Summer [facility] 1.2.840.114 [id number] Univers 00:00:00 00:00:00 [facility] [id number] [facility] [id number] [facility] [phone] Al dical es [address] [facility] Results Test Description Test Time Test Comments Results Result Comments Source SURG 2021-08-17 15:21:00 Test Item Value Reference Range Interpretation Comme nts SURG RUN (test DATE: 08/17/21 [facility] PAGE 1 RUN code = TIME: 1521 Specimen Inquiry RUN USER: INTERFACE SURG) MAXIMUS ENT: ANTHONY CARVER LOC: IreneSaidaAntonio U #: [id number] AGE/SX: 85/M ROOM: [facility] RE08/11/21REG DR: Brandan Mcqueen MD : 36 BED: 1 DIS: 08/12/21 STATUS: DIS IN TLOC: SPEC #: [id number] R SUSPENDER MAKER: 08/14/21 STATUS: MARLEE REQ #: [id number] MAKAYLA: SUBM DR: Brandan Mcqueen MD ENTERED: 08/14/21 SP TYPE: NI RG OTHR DR: Krystyna Mcgovern MD ORDERED: SURG PATH LVL 4 [place]: [place] [id number] [facility] [address] [place] [address] Krystyna Mcgovern MD [address] [place] [address] HISTOLOGY: TISSUE ID BLK PCS LOU LEV PROCEDURE DISPOSITION ____ ___ ___ ___ PROST ATE, NOS A PROCEDURES: SURG PA TH LVL 4 (08/15/21) TISSUES: A. 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 Received in formalin are 16 grams of montalvo-butts rubbery tissue fragments, 8.5 x 8.0 x 2.0 cm in aggregate. Nurse Wound Care sections submitted as A1 - A10. /cw/pdb Grossing performed at [facility] Pathology, [address] [place] [address], [address], [place] [address]. Agency Recruiter: Noe Montgomery M.D. CONTINUED ON NEXT PAGE RUN DATE: 08/17/21 [facility] PAGE 2 RUN TIME: 152 Specimen Inquiry RUN USER: INTERFACE SPEC #: [id number] PATIENT: ANTHONY CARVER #[id number] (Continued) ------- MICROSCOPIC ROGELIO CRIPTION Prostate chips. Sections of posterior prostatic glands and stroma. Areas of art specialist genevieve information along prostatic glands and stroma are seen. Prominent nodular areas of prostatic glands and prostatic stroma are also identified. No evidence of high grade PIN or carcinoma is seen. - Signed SIGNATURE ON FILE Dylan Proctor 08/17/21 1521 END OF REPORT BASIC METABOLIC [id number] 05:38:00 Test Item Value Reference Range Interpretation Comments SODIUM (test code = NA) 139 mmol/L 134-147 N POTASSIUM (test code = 4.4 mmol/L 3.4-5.0 N K) CHLORIDE (test code = 109 mmol/L 100-108 H CL) CARBON DIOXIDE (test 24 mmol/L 21-32 N code = CO2) ANION GAP (test code = 6.0 GAP calc 4.0-15.0 N GAP) GLUCOSE (test code = 124 MG/DL 70-110 H GLU) BLOOD UREA NITROGEN 22 MG/DL 7-18 H (test code = BUN) GLOMERULAR FILTRATION >=60 max estimate >60 RATE (test code = GFR) estGFR CREATININE (test code = 0.8 MG/DL 0.8-1.3 N CREAT) CALCIUM (test code = CA) 8.5 MG/DL 8.5-10.1 N CBC W/AUTO [id number] 05:02:00 Test Item Value Reference Range Interpretation Comments WHITE BLOOD CELL (test code = 16.1 K/mm3 3.5-11.0 H WBC) RED BLOOD CELL (test code = 4.58 M/mm3 4.70-6.10 L RBC) HEMOGLOBIN (test code = HGB) 13.9 G/DL 12.3-15.9 N HEMATOCRIT (test code = HCT) 43.5 % 35.8-46.7 N MEAN CELL VOLUME (test code = 95.0 Fl 86.3-98.9 N MCV) MEAN CELL HGB (test code = MCH) 30.3 pg 28.9-34.4 N MEAN CELL HGB CONCETRATION 32.0 G/DL 32.1-34.5 L (test code = MCHC) RED CELL DISTRIBUTION WIDTH 12.8 SD 11.5-14.5 N (test code = RDW) PLATELET COUNT (test code = 229 K/mm3 150-450 N PLT) MEAN PLATELET VOLUME (test code 9.40 fL 7.0-9.6 N = MPV) NEUTROPHIL % (test code = NT%) 90.9 % 40-76 H IMMATURE GRANULOCYTE % (test 0.6 % 0.0-5.0 N code = IG%) LYMPHOCYTE % (test code = LY%) 5.2 % 20.5-51.1 L MONOCYTE % (test code = MO%) 3.2 % 1.7-9.3 N EOSINOPHIL % (test code = EO%) 0.0 % 0.0-6.0 N BASOPHIL % (test code = BA%) 0.1 % 0.0-2.0 N NUCLEATED RBC % (test code = 0.0 /100WBC% 0.0-1.0 N NRBC%) NEUTROPHIL # (test code = NT#) 14.6 K/mm3 1.8-7.6 H IMMATURE GRANULOCYTE # (test 0.09 x10 3/uL 0.00-0.03 H code = IG#) LYMPHOCYTE # (test code = LY#) 0.8 K/mm3 0.6-3.0 N MONOCYTE # (test code = MO#) 0.5 K/mm3 0.2-1.5 N EOSINOPHIL # (test code = EO#) 0.0 K/mm3 0.0-0.4 N BASOPHIL # (test code = BA#) 0.0 K/mm3 0.0-0.2 N NUCLEATED RBC # (test code = 0.0 K/mm3 0.00-0.01 N NRBC#) MANUAL DIFF REQUIRED (test code NO DIFF/SCN CRITERIA = MDIFF) COVID 19 INHOUSE [id number] 11:29:00 Test Item Value Reference Range Interpretation Comments COVID 19 INHOUSE AG NEGATIVE Negative Per manu facturer, (test code = negative result s should [id number]) be treated aspr esumptive and, if inconsi stent with clinical signs andsymptoms or necessary for patient man agement, should betested with an alternative mol ecular assay. Negative resultsdo not preclude SA RS-CoV-2 infection and s hould not be usedas the s ole basis for patient man agement decisions. Neg ative results should be considered in t he context of apatient's r ecent exposures, hist ory, presence of cli nicalsigns and symptoms co nsistent with COVID-19. BASIC METABOLIC [id number] 11:28:00 Test Item Value Reference Range Interpretation Comments SODIUM (test code = NA) 140 mmol/L 134-147 N POTASSIUM (test code = 3.9 mmol/L 3.4-5.0 N K) CHLORIDE (test code = 109 mmol/L 100-108 H CL) CARBON DIOXIDE (test 28 mmol/L 21-32 N code = CO2) ANION GAP (test code = 3.0 GAP calc 4.0-15.0 L GAP) GLUCOSE (test code = 86 MG/DL 70-110 N GLU) BLOOD UREA NITROGEN 18 MG/DL 7-18 N (test code = BUN) GLOMERULAR FILTRATION >=60 max estimate >60 RATE (test code = GFR) estGFR CREATININE (test code = 0.9 MG/DL 0.8-1.3 N CREAT) CALCIUM (test code = CA) 8.9 MG/DL 8.5-10.1 N PROTHROMBIN [id number] 11:27:00 Test Item Value Reference Range Interpretation Comments PT PATIENT (test 12.4 SECONDS 9.3-12.9 N code = PTP) INTERNATIONAL NORMAL 1.10 INR Unit 0.8-1.2 N TARGET RATIO (test code = INR BY IN DICATION INR) Indication INR1. Prophyl axis of venous thrombos is 2.0 - 3. 0 (orthopedic nithin anya), Prophylaxis of venous thrombos is (other than hig h-risk surgery), Sarah tment of Deep Vein Thrombosis/Pulm onary Embolism, Preve ntion of systemic emb olism - Tissue heart va lves, Acute Myocardia l Infarction (to prevent systemic embo lism), Valvular heart disease, Acut e Myocardial Infa rction (to prevent s ystemic embolism), Valv ular heart disease, Atrial Fibrilla tion, Bileaflet mecha nical valve in aortic position.2. Mec hanical prosthetic valv es (high risk), 2.5 - 3.5 Presence of Lupus Anticoagu lant or Antiphospholi pid Antibodies, Pre vention of systemic e mbolism - Acute Myocard ial Infarction (t o prevent recurre nt infarct). THROMBOPLASTIN TIME [id number] 11:27:00 Test Item Value Reference Range Interpretation Comments THROMBOPLASTIN TIME PARTIAL 29.9 SECONDS 26-35 N (test code = PTT) - XR CHEST 1 [id number] 11:01:00 [facility] 1935 Sex: M Name: ANTHONY CARVER [facility] : 1935 Age/S: 85 / M [id number] [place] [address] Unit #: [id number] Loc: [place] [address] Phys: Rachel Priest MD Acct: [id number] Dis Date: Status: PRE [facility] [place]ONE #: [phone] Exam Date: 08/09/2021 1050 FAX #: Reason: PRE-OP EXAMS: CPT: [id number] XR CHEST 1 V 55127 Fluoro Time: DAP (Gy m2): Air Kerma (mGy): EXAMINATION: Frontal chest radiograph INDICATION: PRE-OP, and 40.1 COMPARISON: None LOCATION: S17 FINDINGS: Clear lungs. No pleural effusion or pneumothorax. Cardiac silhouette is normal in size poststernotomy. IMPRESSION: No acute abnormality identified. at 1101 Reported and signed by: Roni Lowe M.D. CC: Rachel Priest MD; Brandan Mcqueen MD; Krystyna Mcgovern MD PAGE 1 Signed Report Name: ANTHONY CARVER [facility] : 1935 Age/S: 85 / M [address] #: [id number] Loc: [place] [address] Phys: Rachel Priest MD Acct: [id number] Dis Date: Status:PRE SDC PHONE #: [phone] Exam Date: 08/09/2021 1050 FAX #: Reason: PRE-OP EXAMS: CPT: [id number] XR CHEST 1 V 82120 Fluoro Time: DAP (Gy m2): Air Kerma (mGy): <Continued> Technologist: Julianna Waters RT(R) Trnscb Date/Time: 08/09/2021 (1101) [email or web address] Orig Print D/T: S: 08/09/2021 (1486) PAGE 2 Signed ReportCBC W/AUTO DIFF 2021-08-09 10:59:00 Test Item Value Reference Range Interpretation Comments WHITE BLOOD CELL (test code = 8.4 K/mm3 3.5-11.0 N WBC) RED BLOOD CELL (test code = 4.84 M/mm3 4.70-6.10 N RBC) HEMOGLOBIN (test code = HGB) 14.8 G/DL 12.3-15.9 N HEMATOCRIT (test code = HCT) 45.7 % 35.8-46.7 N MEAN CELL VOLUME (test code = 94.4 Fl 86.3-98.9 N MCV) MEAN CELL HGB (test code = MCH) 30.6 pg 28.9-34.4 N MEAN CELL HGB CONCETRATION 32.4 G/DL 32.1-34.5 N (test code = MCHC) RED CELL DISTRIBUTION WIDTH 12.7 SD 11.5-14.5 N (test code = RDW) PLATELET COUNT (test code = 308 K/mm3 150-450 N PLT) MEAN PLATELET VOLUME (test code 9.20 fL 7.0-9.6 N = MPV) NEUTROPHIL % (test code = NT%) 71.7 % 40-76 N IMMATURE GRANULOCYTE % (test 1.8 % 0.0-5.0 N code = IG%) LYMPHOCYTE % (test code = LY%) 15.7 % 20.5-51.1 L MONOCYTE % (test code = MO%) 8.7 % 1.7-9.3 N EOSINOPHIL % (test code = EO%) 1.6 % 0.0-6.0 N BASOPHIL % (test code = BA%) 0.5 % 0.0-2.0 N NUCLEATED RBC % (test code = 0.0 /100WBC% 0.0-1.0 N NRBC%) NEUTROPHIL # (test code = NT#) 6.0 K/mm3 1.8-7.6 N IMMATURE GRANULOCYTE # (test 0.15 x10 3/uL 0.00-0.03 H code = IG#) LYMPHOCYTE # (test code = LY#) 1.3 K/mm3 0.6-3.0 N MONOCYTE # (test code = MO#) 0.7 K/mm3 0.2-1.5 N EOSINOPHIL # (test code = EO#) 0.1 K/mm3 0.0-0.4 N BASOPHIL # (test code = BA#) 0.0 K/mm3 0.0-0.2 N NUCLEATED RBC # (test code = 0.0 K/mm3 0.00-0.01 N NRBC#) MANUAL DIFF REQUIRED (test code NO DIFF/SCN CRITERIA = MDIFF) XR SHOULDER 2+ VW [id number] 19:16:37HISTORY: ?Pain. FINDINGS: 2 frontal projection views of the right shoulder obtained withthe arm in internal and external rotation positions showed no acutefracture or dislocation. No aggressive bone lesions seen. No appreciablecalcifications in the rotator cuff tendons. 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 Shortright cervical rib is visualized. CONCLUSIONS: No acute fracture or dislocation in right shoulder. [facility], Radiant Results Inft User - 02/11/2020 2:17 PM CDTHISTORY: Pain.FINDINGS: 2 frontal projection views of the right shoulder obtained withthe arm in internal and external rotation positions showed no acutefracture or dislocation. No aggressive bone lesions seen. No appreciablecalcifications in the rotator cuff tendons. 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 Shortright cervical rib is visualized.CONCLUSIONS: No acute fracture or dislocation in right shoulder. [facility]
[2022-03-29 11:32] LABS: Absolute Lymphocytes (CBC) 1.1 K/uL (0.7-4.9); Hematocrit 44.1 % (39.6-49.0); Lymphocytes % 13.2 % (15.3-44.8); MPV 7.9 fL (7.6-11.3); RBC Red Blood Cell Count 4.83 M/uL (4.33-5.43)
--- NOTE | 2022-03-29 11:42 | RAD REPORT ---
EXAM DESCRIPTION: RAD - Chest Single View - 03/29/2022 11:36 am CLINICAL HISTORY: COUGH COMPARISON: CHEST SINGLE VIEW dated 04/15/2015; CHEST SINGLE VIEW dated 10/26/2014; CHEST SINGLE VIEW dated 10/25/2014; CHEST SINGLE VIEW dated 10/11/2014 FINDINGS: Lines: None. Lungs: No evidence of edema or pneumonia. Pleural: No significant pleural effusions or pneumothorax. Cardiac: The heart size is within normal limits. Bones: No acute fractures. Sternotomy Other: IMPRESSION: No acute cardiopulmonary disease.
[2022-03-29 11:44] LABS: Protime INR 1.14
[2022-03-29 11:57] LABS: Bilirubin Direct 0.2 mg/dL (0-0.2); Bilirubin Total 0.6 mg/dL (0.2-1.0); C-Reactive Protein 9.88 mg/L (<3.00); Ferritin 91.9 ng/mL (26-388); Potassium 4.1 mmol/L (3.5-5.1); Protein, Total 7.3 g/dL (6.4-8.2); Troponin High Sensitivity 5.8 pg/mL (<58.9)
--- NOTE | 2022-03-29 13:19 | EDPHYS ---
Physician Documentation [facility] Name: Tom Diaz Age: 86 yrs Sex: Male : 1935 Arrival Date: 03/29/2022 Time: 10:19 Bed 16 Private MD: Dutch Menard S ED Physician Jose R De La Torre HPI: 03/29 10:40 This 86 yrs old Male presents to ER via Ambulatory with complaints of Cough, Breathing jh7 Difficulty. 10:40 Onset: The symptoms/episode began/occurred 2 day(s) ago. Patient complains of cough and jh7 shortness of breath over the past 2 days. States that he was exposed to COVID last Saturday, and thinks that he has it again. Denies fever, chest pain, dizziness, or any other symptoms.. Historical: - Allergies: 10:38 No Known Drug Allergies; tw2 - Home Meds: 10:38 Simvastatin Oral [Active]; finasteride oral [Active]; Plavix Oral [Active]; tw2 - PMHx: 10:38 BPH; Hypertension; tw2 - PSHx: 10:38 CABG; Appendectomy; tw2 - Immunization history:: Client reports receiving the 2nd dose of the Covid vaccine. - Social history:: Smoking status: Patient denies any tobacco usage or history of. ROS: 10:38 Constitutional: Negative for fever, chills, and weight loss, ENT: Negative for injury, jh7 pain, and discharge, Neck: Negative for injury, pain, and swelling, Cardiovascular: Negative for chest pain, palpitations, and edema, Abdomen/GI: Negative for abdominal pain, nausea, vomiting, diarrhea, and constipation, Back: Negative for injury and pain, MS/Extremity: Negative for injury and deformity, Skin: Negative for injury, rash, and discoloration, Neuro: Negative for headache, weakness, numbness, tingling, and seizure. 10:38 Respiratory: Positive for cough, with no reported sputum, shortness of breath, Negative for wheezing. 10:38 All other systems are negative. Exam: 10:38 Constitutional: This is a well developed, well nourished patient who is awake, alert, jh7 and in no acute distress. 10:38 Neck: Trachea midline, no thyromegaly or masses palpated, and no cervical lymphadenopathy. Supple, full range of motion without nuchal rigidity, or vertebral point tenderness. No Meningismus. Cardiovascular: Regular rate and rhythm with a normal S1 and S2. No gallops, murmurs, or rubs. Normal PMI, no JVD. No pulse deficits. Abdomen/GI: Soft, non-tender, with normal bowel sounds. No distension or tympany. No guarding or rebound. No evidence of tenderness throughout. Back: No spinal tenderness. No costovertebral tenderness. Full range of motion. Skin: Warm, dry with normal turgor. Normal color with no rashes, no lesions, and no evidence of cellulitis. Neuro: Awake and alert, GCS 15, oriented to person, place, time, and situation. Cranial nerves II-XII grossly intact. Motor strength 5/5 in all extremities. Sensory grossly intact. Normal gait. 10:38 ENT: Nose: nasal drainage, and is seen coming from both nares, that is clear, post nasal drainage. 10:38 Respiratory: the patient does not display signs of respiratory distress, Respirations: normal, Breath sounds: are clear throughout, Respiratory rate: 18 Dry hacking cough noted on exam. Vital Signs: 10:37 BP 141 / 73; Pulse 75; Resp 17; Temp 98.6(TE); Pulse Ox 99% on R/A; Weight 76.2 kg (R); tw2 Height 5 ft. 10 in. (177.80 cm); 11:55 BP 150 / 62; Pulse 50; Resp 20 S; Pulse Ox 96% on R/A; jg9 13:00 BP 132 / 53; Pulse 52; Resp 20 S; Pulse Ox 100% on R/A; jg9 10:37 Body Mass Index 24.11 (76.20 kg, 177.80 cm) tw2 MDM: 10:43 Patient medically screened. [facility] 13:00 Differential Diagnosis: Influenza Upper Respiratory Infection Viral Syndrome Pneumonia jh7 Other COVID-19. Data reviewed: vital signs, nurses notes, lab test result(s), EKG, radiologic studies. Data interpreted: Pulse oximetry: is 100 %. Interpretation: normal. Counseling: I had a detailed discussion with the patient and/or guardian regarding: the historical points, exam findings, and any diagnostic results supporting the discharge/admit diagnosis, to return to the emergency department if symptoms worsen or persist or if there are any questions or concerns that arise at home. Special discussion: I discussed with the patient/guardian in detail that at this point there is no indication for admission to the hospital. It is understood, however, that if the symptoms persist or worsen the patient needs to return immediately for re-evaluation. ED course: The patient remained stable throughout the ER visit. Informed him that his x-ray was negative for any acute findings and that there were no critical findings on his lab work. Informed him that if he develops any new concerning symptoms, or worsening of current symptoms, he may return to the ER for further eval.. 03/29 11:06 Order name: BMP; Complete Time: 12:09 [facility] 03/29 11:06 Order name: C-Reactive Protein; Complete Time: 12:09 [facility] 03/29 11:06 Order name: CBC with Diff; Complete Time: 11:40 [facility] 03/29 11:06 Order name: D-Dimer; Complete Time: 11:53 [facility] 03/29 11:06 Order name: Ferritin; Complete Time: 12:09 [facility] 03/29 11:06 Order name: Flu; Complete Time: 12:47 [facility] 03/29 11:06 Order name: LFT's; Complete Time: 12:09 [facility] 03/29 11:06 Order name: PT-INR; Complete Time: 11:53 [facility] 03/29 11:06 Order name: Ptt, Activated; Complete Time: 11:53 [facility] 03/29 11:06 Order name: Troponin HS; Complete Time: 12:09 [facility] 03/29 11:06 Order name: CXR XRAY; Complete Time: 11:53 [facility] 03/29 11:06 Order name: EKG; Complete Time: 11:06 [facility] 03/29 11:06 Order name: Cardiac monitoring; Complete Time: 11:56 [facility] 03/29 11:06 Order name: SARS-COV-2 RT PCR (Document "Date of Onset" if Symptomatic); Complete Time: [facility] 15:13 03/29 11:06 Order name: Droplet/Contact Precautions; Complete Time: 11:57 [facility] 03/29 11:06 Order name: EKG - Nurse/Tech; Complete Time: 11:56 [facility] 03/29 11:06 Order name: IV Start; Complete Time: 11:34 [facility] 03/29 11:06 Order name: Labs collected and sent; Complete Time: 11:55 [facility] 03/29 11:06 Order name: O2 Per Protocol; Complete Time: 11:56 [facility] 03/29 11:06 Order name: O2 Sat Monitoring; Complete Time: 11:56 [facility] Administered Medications: No medications were administered Disposition Summary: 03/29/22 13:19 Discharge Ordered Location: Home [facility] Problem: new [facility] Symptoms: are unchanged [facility] Condition: Stable [facility] Diagnosis - Coronavirus infection, unspecified [facility] Followup: [facility] - With: Private Physician - When: 2 - 3 days - Reason: Continuance of care Discharge Instructions: - Discharge Summary Sheet [facility] - COVID-19 [facility] - COVID-19 Frequently Asked Questions [facility] Forms: - Medication Reconciliation Form [facility] - Thank You Letter [facility] Prescriptions: - ProAir HFA 90 mcg/actuation Inhalation HFA aerosol inhaler - inhale 2 puff by INHALATION route every 4-6 hours; 1 Inhaler; Refills: 0, [facility] Product Selection Permitted - Tessalon Perles 100 mg Oral Capsule - take 1 capsule by ORAL route every 8 hours As needed; 15 capsule; Refills: 0, [facility] Product Selection Permitted Signatures: Dispatcher [employer] Jose R Crockett MD MD cha Wise, Tara RN RN tw2 Jil Salter FNP ORIENTAL RUG STRETCHER [facility]
--- NOTE | 2022-03-29 13:19 | ER ---
Nurse's Notes [facility] Name: Tom Diaz Age: 86 yrs Sex: Male : 1935 Arrival Date: 03/29/2022 Time: 10:19 Bed 16 Private MD: Dutch Menard S Diagnosis: Coronavirus infection, unspecified Presentation: 03/29 10:37 Chief complaint: Patient states: started yesterday, i started coughing and short of tw2 breath and congested. Coronavirus screen: congestion, cough unrelated to allergies, difficulty breathing, fatigue, runny nose, Client presents with at least one sign or symptom that may indicate coronavirus-19. Standard/surgical mask placed on the client. Provider contacted for isolation considerations. Ebola Screen: Patient denies travel to an Ebola-affected area in the 21 days before illness onset. Initial Sepsis Screen: Does the patient meet any 2 criteria? No. Patient's initial sepsis screen is negative. Does the patient have a suspected source of infection? No. Patient's initial sepsis screen is negative. Risk Assessment: Do you want to hurt yourself or someone else? Patient reports no desire to harm self or others. Onset of symptoms was March 29, 2022. 10:37 Method Of Arrival: Ambulatory tw2 10:37 Acuity: ABHIJEET 3 tw2 Triage Assessment: 10:38 General: Appears in no apparent distress. slender, well groomed, Behavior is calm, tw2 cooperative, appropriate for age. Pain: Denies pain. Neuro: Level of Consciousness is awake, alert, obeys commands, Oriented to person, place, time, situation. Respiratory: Reports shortness of breath at rest on exertion cough that is non-productive, Onset: The symptoms/episode began/occurred yesterday, the patient has mild shortness of breath. Historical: - Allergies: 10:38 No Known Drug Allergies; tw2 - Home Meds: 10:38 Simvastatin Oral [Active]; finasteride oral [Active]; Plavix Oral [Active]; tw2 - PMHx: 10:38 BPH; Hypertension; tw2 - PSHx: 10:38 CABG; Appendectomy; tw2 - Immunization history:: Client reports receiving the 2nd dose of the Covid vaccine. - Social history:: Smoking status: Patient denies any tobacco usage or history of. Screenin:41 Abuse screen: Denies threats or abuse. Nutritional screening: No deficits noted. tw2 Tuberculosis screening: No symptoms or risk factors identified. Fall Risk None identified. Assessment: 11:56 Reassessment: No changes from previously documented assessment. Patient and/or family jg9 updated on plan of care and expected duration. Pain level reassessed. Patient is alert, oriented x 3, equal unlabored respirations, skin warm/dry/pink. Cardiovascular: No deficits noted. Rhythm is sinus rhythm. Respiratory: Airway is patent Respiratory effort is even, unlabored, productive cough Breath sounds are diminished bilaterally. Vital Signs: 10:37 BP 141 / 73; Pulse 75; Resp 17; Temp 98.6(TE); Pulse Ox 99% on R/A; Weight 76.2 kg (R); tw2 Height 5 ft. 10 in. (177.80 cm); 11:55 BP 150 / 62; Pulse 50; Resp 20 S; Pulse Ox 96% on R/A; jg9 13:00 BP 132 / 53; Pulse 52; Resp 20 S; Pulse Ox 100% on R/A; jg9 10:37 Body Mass Index 24.11 (76.20 kg, 177.80 cm) tw2 ED Course: 10:19 Patient arrived in ED. am2 10:19 Dutch Menard MD is Private Physician. am2 10:38 Triage completed. tw2 10:38 Jil Salter F[facility]. jh7 10:38 Jose R De La Torre MD is Attending Physician. jh7 10:39 Arm band placed on. tw2 11:14 Jil Patel, SAUL is Primary Nurse. jg9 11:23 Initial lab(s) drawn, by vt, sent to lab. Inserted saline lock: 20 gauge in left dh3 antecubital area, using aseptic technique. Blood collected. 11:38 CXR XRAY In Process Unspecified. EDMS 12:04 Patient has correct armband on for positive identification. Bed in low position. Call jg9 light in reach. Side rails up X 1. 13:33 No provider procedures requiring assistance completed. jg9 13:34 IV discontinued. jg9 Administered Medications: No medications were administered Medication: 12:04 VIS not applicable for this client. jg9 Outcome: 13:19 Discharge ordered by . jh7 13:33 Discharged to home ambulatory. jg9 13:33 Condition: stable 13:33 Discharge instructions given to patient, Instructed on discharge instructions, follow up and referral plans. Demonstrated understanding of instructions, follow-up care, Prescriptions given X 2. 13:34 Patient left the ED. jg9 Signatures: Dispatcher [employer] EDAngela Ramírez, RN RN tw2 Romana Christine Bev Landis 3 Jil Patel, SAUL RN jg9 Jil Salter, HELGA PARTIDA jh7
[2022-03-29 13:44] VITALS: TEMP 98.6
[2022-03-29 13:47] VITALS: BP 132/53; O2SAT 100
--- NOTE | 2022-03-31 14:34 | EKG ---
Test Date: 2022-03-29 Test Time: 11:53:22 Skid Strapper: ZULMA MEASUREMENT RESULTS: Intervals: Rate: 50 CO: 168 QRSD: 82 QT: 450 QTc: 410 [place]elle: P: 39 CO: 168 QRS: -2 T: 28 INTERPRETIVE STATEMENTS: Sinus bradycardia Minimal voltage criteria for LVH, may be normal variant Cannot rule out Anterior infarct, age undetermined Abnormal ECG Compared to ECG 11/27/2016 14:01:05 Left ventricular hypertrophy now present Myocardial infarct finding now present Electronically Signed On 03-31-22 14:32:24 CDT by Vidal Goldberg
== END 2022-03-29 13:34 | disposition home or self-care (01) ==
LOC: ER 10:18
DX: U07.1 COVID-19 (principal); I10 Essential (primary) hypertension; N40.0 Benign prostatic hyperplasia without lower urinary tract symptoms; Z95.1 Presence of aortocoronary bypass graft; Z79.01 Long term (current) use of anticoagulants
CPT/HCPCS: 93005; 85025; 80048; 36415; 85610; 85379; 80076; 85730; 84484; 82728; 86140; 87804 ×2; 71045; 99284; U0003

== ENCOUNTER 2024-02-28 10:11 | Emergency (ER) | payer OTHER ==
[2024-02-28 11:01] LABS: Absolute Eosinophils 0.1 K/uL (0-0.5); Absolute Lymphocytes (CBC) 1.6 K/uL (0.7-4.9); Absolute Monocytes 0.8 K/uL (0.1-1.3); Absolute Neutrophil 4.7 K/uL (1.8-8.0); Basophils % 0.6 % (0-1.3); Eosinophils % 1.5 % (0-4.4); Hematocrit 44.1 % (39.6-49.0); Hemoglobin 14.6 g/dL (13.6-17.9); Lymphocytes % 22.1 % (15.3-44.8); MCH 30.4 pg (27.0-35.0); MCHC 33.2 g/dL (32.0-36.0); MCV 91.5 fL (80-100); MPV 8.4 fL (7.6-11.3); Monocytes % 11.3 % (3.3-12.3); Neutrophils % 64.5 % (41.7-73.7); PT Prothrombin Time 12.7 SECONDS (9.5-12.5); Platelets 207 thou/uL (152-406); Protime INR 1.16; RBC Red Blood Cell Count 4.82 M/uL (4.33-5.43); Red Cell Distribution Width 13.3 % (12.1-15.2)
[2024-02-28 11:27] LABS: Albumin 3.8 g/dL (3.4-5.0); Albumin/Globulin Ratio 1.2 (1.1-1.8); Bilirubin Direct 0.2 mg/dL (0-0.2); Bilirubin Indirect, Calculated 0.5 mg/dL (0.2-0.8); Bilirubin Total 0.7 mg/dL (0.2-1.0); Globulin 3.2 g/dL (2.3-3.5); Troponin High Sensitivity 5.8 pg/mL (<58.9)
--- NOTE | 2024-02-28 13:19 | ER ---
Nurse's Notes [facility] Name: Tom Diaz Age: 88 yrs Sex: Male : 1935 Arrival Date: 02/28/2024 Time: 10:11 Bed 4 Private MD: Dutch Menard S Diagnosis: Generalized weakness Presentation: 02/27 10:18 Chief complaint: Patient states: "I just feel so weak and that is how I felt when I had aa5 my triple bypass 9 years ago". Pt denies chest pain, denies SOB. 10:18 Coronavirus screen: At this time, the client does not indicate any symptoms associated aa5 with coronavirus-19. Ebola Screen: Patient denies travel to an Ebola-affected area in the 21 days before illness onset. Initial Sepsis Screen: Does the patient meet any 2 criteria? No. Patient's initial sepsis screen is negative. Does the patient have a suspected source of infection? No. Patient's initial sepsis screen is negative. Risk Assessment: Do you want to hurt yourself or someone else? Patient reports no desire to harm self or others. Onset of symptoms was February 28, 2024. 10:18 Acuity: ABHIJEET 2 aa5 10:18 Method Of Arrival: Ambulatory aa5 Historical: - Allergies: 10:18 No Known Allergies; aa5 - PMHx: 10:18 BPH; Hypertension; aa5 - PSHx: 10:18 Appendectomy; Triple heart bypass; aa5 - Immunization history:: Adult Immunizations unknown. - Infectious Disease History:: Denies. - Social history:: Smoking status: Patient denies any tobacco usage or history of. Screenin:20 [facility] ED Fall Risk Assessment (Adult) History of falling in the last 3 months, aa5 including since admission No falls in past 3 months (0 pts) Confusion or Disorientation No (0 pts) Intoxicated or Sedated No (0 pts) Impaired Gait No (0 pts) Mobility Assist Device Used No (0 pt) Altered Elimination No (0 pt) Score/Fall Risk Level 0 - 2 = Low Risk Oriented to surroundings, Maintained a safe environment, Educated pt \\T\\ family on fall prevention, incl call for assistance when getting out of bed. Abuse screen: Denies threats or abuse. Nutritional screening: No deficits noted. Tuberculosis screening: No symptoms or risk factors identified. Assessment: 10:18 General: Appears uncomfortable, Behavior is calm, cooperative. Pain: Denies pain. aa5 Neuro: Level of Consciousness is awake, alert, obeys commands, Oriented to person, place, time, situation. Cardiovascular: Reports fatigue, Denies chest pain, diaphoresis, lightheadedness, nausea, palpitations, shortness of breath, Heart tones S1 S2 present Rhythm is sinus rhythm. Respiratory: Airway is patent Respiratory effort is even, unlabored, Respiratory pattern is regular, symmetrical, Breath sounds are clear bilaterally. GI: Abdomen is non-distended. : No signs and/or symptoms were reported regarding the genitourinary system. EENT: No signs and/or symptoms were reported regarding the EENT system. Derm: Skin is pink, warm \\T\\ dry. Musculoskeletal: Range of motion: intact in all extremities. 11:00 Reassessment: Patient is alert, oriented x 3, equal unlabored respirations, skin aa5 warm/dry/pink. Patient denies pain at this time. 12:00 Reassessment: No changes from previously documented assessment. Patient and/or family mb9 updated on plan of care and expected duration. Pain level reassessed. Patient is alert, oriented x 3, equal unlabored respirations, skin warm/dry/pink. 13:42 Reassessment: No changes from previously documented assessment. Patient and/or family mb9 updated on plan of care and expected duration. Pain level reassessed. Patient is alert, oriented x 3, equal unlabored respirations, skin warm/dry/pink. Vital Signs: 10:18 BP 151 / 57; Pulse 61; Resp 18 S; Temp 97.5(TE); Pulse Ox 100% on R/A; Weight 76.2 kg aa5 (R); Height 5 ft. 10 in. (R); 11:00 BP 142 / 67; Pulse 56; Resp 16 S; Pulse Ox 97% on R/A; aa5 12:19 BP 151 / 66; Pulse 57; Pulse Ox 100% on R/A; ap3 13:42 BP 144 / 66; Pulse 61; Resp 18; Pulse Ox 100% on R/A; mb9 10:18 Body Mass Index 24.11 (76.20 kg, 177.8 cm) aa5 ED Course: 10:12 Patient arrived in ED. rg4 10:12 Menard, Dutch, MD is Private Physician. rg4 10:18 Holley De Leon, SAUL is Primary Nurse. aa5 10:18 Keysha Laguna MD is Attending Physician. sp3 10:18 Arm band placed on Patient placed in an exam room, on a stretcher. aa5 10:18 Patient has correct armband on for positive identification. Placed in gown. Bed in low aa5 position. Call light in reach. Side rails up X2. Client placed on continuous cardiac and pulse oximetry monitoring. NIBP monitoring applied. monitoring specialist on. Pulse ox on. NIBP on. 10:25 Initial lab(s) drawn, by me, sent to lab. Inserted saline lock: 20 gauge in left aa5 antecubital area, using aseptic technique. Blood collected. 10:34 Triage completed. aa5 10:56 Initial lab(s) drawn, by me, sent to lab. jg11 11:21 Lactate w/ 2H reflex if indic. Sent. jg11 11:21 CBC with Automated Diff Sent. jg11 11:21 Protime (+INR) Sent. jg11 11:21 Liver (Hepatic) Function Sent. jg11 11:21 Troponin High Sensitivity Sent. jg11 11:21 NT PRO-BNP Sent. jg11 11:21 Basic Metabolic Panel Sent. jg11 11:21 Lactate w/ 2H reflex if indic. Sent. jg11 11:21 NT PRO-BNP Sent. jg11 11:21 LFT's Sent. jg11 11:21 Basic Metabolic Panel Sent. jg11 11:21 CBC with Diff Sent. jg11 11:21 Troponin HS Sent. jg11 13:19 Chest Single View In Process Unspecified. EDMS 13:42 No provider procedures requiring assistance completed. IV discontinued, intact, mb9 bleeding controlled, No redness/swelling at site. Pressure dressing applied. Administered Medications: No medications were administered Medication: 11:11 VIS not applicable for this client. aa5 Outcome: 13:18 Discharge ordered by . sp3 13:43 Discharged to home ambulatory, with family, omar 13:43 Condition: stable 13:43 Discharge instructions given to patient, Instructed on discharge instructions, follow up and referral plans. Demonstrated understanding of instructions, follow-up care, 13:43 Patient left the ED. omar Signatures: Dispatcher [employer] EDMS Holley De Leon RN RN aa5 Rachelle Nj4 Romana Leblanc RN RN ap3 Keysha Laguna MD MD sp3 Alisia Vega RN RN mb9 Yves Roberson jg11 Corrections: (The following items were deleted from the chart) 10:33 10:18 PSHx: CABG; aa5 aa5 10:33 10:18 PSHx: Triple bypass; aa5 aa5
--- NOTE | 2024-02-28 13:19 | EDPHYS ---
Physician Documentation [facility] Name: Tom Diaz Age: 88 yrs Sex: Male : 1935 Arrival Date: 02/28/2024 Time: 10:11 Bed 4 Private MD: Dutch Menard S ED Physician Keysha Laguna HPI: 02/27 10:23 This 88 yrs old Male presents to ER via Unassigned with complaints of Weakness. sp3 10:23 88-year-old male with history of hypertension, coronary artery disease status post CABG sp3 now presents to the ED with chief complaint of generalized weakness that started 3 days ago with worsening today. Patient states "this is how it felt when I had my last heart attack". He denies any other symptoms including headache, URI symptoms, fever, known sick contacts, travel history, prolonged immobilization, chest pain, abdominal pain, vomiting, diarrhea, syncope, near syncope, focal neurological deficit, rash, or any other signs or symptoms on ROS at this time. He does endorse shortness of breath which is mild in nature and fleeting. No history of DVT or PE. Patient is on aspirin and Plavix antiplatelet agents.. Historical: - Allergies: 10:18 No Known Allergies; aa5 - PMHx: 10:18 BPH; Hypertension; aa5 - PSHx: 10:18 Appendectomy; Triple heart bypass; aa5 - Immunization history:: Adult Immunizations unknown. - Infectious Disease History:: Denies. - Social history:: Smoking status: Patient denies any tobacco usage or history of. ROS: 10:23 Constitutional: Negative for fever, chills, and weight loss, Eyes: Negative for injury, sp3 pain, redness, and discharge, ENT: Negative for injury, pain, and discharge, Neck: Negative for injury, pain, and swelling, Abdomen/GI: Negative for abdominal pain, nausea, vomiting, diarrhea, and constipation, Back: Negative for injury and pain, MS/Extremity: Negative for injury and deformity, Skin: Negative for injury, rash, and discoloration, Neuro: Negative for headache, weakness, numbness, tingling, and seizure, Psych: Negative for depression, anxiety, suicide ideation, homicidal ideation, and hallucinations, Allergy/Immunology: Negative for hives, rash, and allergies, Endocrine: Negative for neck swelling, polydipsia, polyuria, polyphagia, and marked weight changes, Hematologic/Lymphatic: Negative for swollen nodes, abnormal bleeding, and unusual bruising, 10:23 All other systems are negative, Exam: 10:23 Constitutional: This is a well developed, well nourished patient who is awake, alert, sp3 and in no acute distress. Head/Face: Normocephalic, atraumatic. Eyes: Pupils equal round and reactive to light, extra-ocular motions intact. Lids and lashes normal. Conjunctiva and sclera are non-icteric and not injected. Cornea within normal limits. Periorbital areas with no swelling, redness, or edema. ENT: Nares patent. No nasal discharge, no septal abnormalities noted. External auditory canals are clear. Oropharynx with no redness, swelling, or masses, exudates, or evidence of obstruction, uvula midline. Mucous membranes moist. Neck: Trachea midline, no thyromegaly or masses palpated, and no cervical lymphadenopathy. Supple, full range of motion without nuchal rigidity, or vertebral point tenderness. No Meningismus. Chest/axilla: Normal chest wall appearance and motion. Nontender with no deformity. No lesions are appreciated. Cardiovascular: Regular rate and rhythm with a normal S1 and S2. No gallops, murmurs, or rubs. Normal PMI, no JVD. No pulse deficits. Respiratory: Lungs have equal breath sounds bilaterally, clear to auscultation and percussion. No rales, rhonchi or wheezes noted. No increased work of breathing, no retractions or nasal flaring. Abdomen/GI: Soft, non-tender, with normal bowel sounds. No distension or tympany. No guarding or rebound. No evidence of tenderness throughout. Back: No spinal tenderness. No costovertebral tenderness. Full range of motion. Skin: Warm, dry with normal turgor. Normal color with no rashes, no lesions, and no evidence of cellulitis. MS/ Extremity: Pulses equal, no cyanosis. Neurovascular intact. Full, normal range of motion. Neuro: Awake and alert, GCS 15, oriented to person, place, time, and situation. Cranial nerves II-XII grossly intact. Motor strength 5/5 in all extremities. Sensory grossly intact. Cerebellar exam normal. Normal gait. Psych: Awake, alert, with orientation to person, place and time. Behavior, mood, and affect are within normal limits. 10:23 ECG was reviewed by the Attending Physician. EKG demonstrates normal sinus rhythm at 65 bpm with normal intervals, normal QRS, normal axis, nonspecific ST/T changes without evidence of acute ischemia. Vital Signs: 10:18 BP 151 / 57; Pulse 61; Resp 18 S; Temp 97.5(TE); Pulse Ox 100% on R/A; Weight 76.2 kg aa5 (R); Height 5 ft. 10 in. (R); 11:00 BP 142 / 67; Pulse 56; Resp 16 S; Pulse Ox 97% on R/A; aa5 12:19 BP 151 / 66; Pulse 57; Pulse Ox 100% on R/A; ap3 13:42 BP 144 / 66; Pulse 61; Resp 18; Pulse Ox 100% on R/A; mb9 10:18 Body Mass Index 24.11 (76.20 kg, 177.8 cm) aa5 MDM: 10:19 Patient medically screened. sp3 10:24 Data reviewed: vital signs, nurses notes, lab test result(s), EKG, radiologic studies. sp3 ED course: 88-year-old male with generalized weakness. Differential diagnosis includes acute coronary syndrome spectrum, viral syndrome, pneumonia or other pulmonary pathology, electrolyte disturbance, dehydration, among others. Workup will include EKG, chest x-ray, urine analysis, general laboratory blood work including troponin and observation until disposition can be determined. Patient denies flu and COVID exposure or symptoms and declined testing at this time.. 13:17 ED course: Full workup negative including troponin. After 3 days of symptoms a single sp3 troponin has effectively ruled out ACS. Patient saw PCP yesterday as well which he also informed me of. They did blood work there and a chest x-ray which also demonstrated no significant findings patient was let go from the office at that time. I have advised patient to follow back up with Dr. Goldberg and his industrial radiographer and return here for any pain or worsening symptoms.. 02/27 10:36 Order name: Basic Metabolic Panel EDWA 02/27 10:36 Order name: Liver (Hepatic) Function EDWA 02/27 10:36 Order name: Troponin High Sensitivity EDWA 02/27 10:36 Order name: NT PRO-BNP EDWA 02/27 10:36 Order name: CBC with Automated Diff EDMS 02/27 10:36 Order name: Protime (+INR) EDMS 02/27 11:17 Order name: Lactate w/ 2H reflex if indic. EDMS 02/27 12:08 Order name: Basic Metabolic Panel; Complete Time: 12:46 EDMS 02/27 12:08 Order name: Liver (Hepatic) Function; Complete Time: 12:46 EDMS 02/27 12:08 Order name: Troponin High Sensitivity; Complete Time: 12:46 EDMS 02/27 12:08 Order name: NT PRO-BNP; Complete Time: 12:46 EDMS 02/27 12:08 Order name: CBC with Automated Diff; Complete Time: 12:46 EDMS 02/27 12:08 Order name: Protime (+INR); Complete Time: 12:46 EDMS 02/27 12:08 Order name: Lactate w/ 2H reflex if indic.; Complete Time: 12:46 EDMS 02/27 13:08 Order name: Chest Single View EDMS 02/27 13:28 Order name: RAD EDMS 02/27 10:19 Order name: EKG; Complete Time: 10:19 sp3 02/27 10:19 Order name: Cardiac monitoring; Complete Time: 10:24 sp3 02/27 10:19 Order name: EKG - Nurse/Tech; Complete Time: 10:24 sp3 02/27 10:19 Order name: IV Saline Lock; Complete Time: 10:24 sp3 02/27 10:19 Order name: Labs collected and sent; Complete Time: 10:24 sp3 02/27 10:19 Order name: O2 Per Protocol; Complete Time: 10:24 sp3 02/27 10:19 Order name: O2 Sat Monitoring; Complete Time: 10:24 sp3 Administered Medications: No medications were administered Disposition Summary: 02/28/24 13:18 Discharge Ordered Notes: Location: Home sp3 Condition: Stable sp3 Diagnosis - Generalized weakness sp3 Followup: sp3 - With: Private Physician - When: Upon discharge from the Emergency Department - Reason: Continuance of care Discharge Instructions: - Discharge Summary Sheet sp3 - Fatigue sp3 Forms: - Medication Reconciliation Form sp3 - Antibiotic Education sp3 - Prescription Opioid Use sp3 - Patient Portal Instructions sp3 - Leadership Thank You Letter sp3 Signatures: Dispatcher [employer] EDHolley Mbary, RN RN aa5 Keysha Laguna MD MD sp3 Corrections: (The following items were deleted from the chart) 10:20 10:19 BASIC METABOLIC PANEL+C.LAB.BRZ ordered. EDMS EDMS 10:20 10:19 CBC+H.LAB.BRZ ordered. EDMS EDMS 10:20 10:19 HEPATIC FUNCTION+C.LAB.BRZ ordered. EDMS EDMS 10:20 10:19 MAGNESIUM+C.LAB.BRZ ordered. EDMS EDMS 10:20 10:19 PROBNP+C.LAB.BRZ ordered. EDMS EDMS 10:20 10:19 PROTIME (+INR)+COAG.LAB.BRZ ordered. EDMS EDMS 10:20 10:19 Troponin High Sensitivity+C.LAB.BRZ ordered. EDMS EDMS 10:20 10:19 LACTATE+C.LAB.BRZ ordered. EDMS EDMS 10:20 10:19 Urinalysis W/Microscopic+U.LAB.BRZ ordered. EDMS EDMS 10:26 10:26 PROTIME (+INR)+COAG.LAB.BRZ ordered. EDMS EDMS 10:26 10:26 LACTATE+C.LAB.BRZ ordered. EDMS EDMS 10:27 10:27 PROTIME (+INR)+COAG.LAB.BRZ ordered. EDMS EDMS 10:33 10:18 PSHx: CABG; aa5 aa5 10:33 10:18 PSHx: Triple bypass; aa5 aa5
--- NOTE | 2024-02-28 13:27 | RAD REPORT ---
EXAM DESCRIPTION: RAD - Chest Single View - 02/28/2024 1:17 pm CLINICAL HISTORY: CHEST PAIN COMPARISON: Chest Single View dated 03/29/2022; CHEST SINGLE VIEW dated 04/15/2015; CHEST SINGLE VIEW d ated 10/26/2014; CHEST SINGLE VIEW dated 10/25/2014 FINDINGS: Lines: None. Lungs: No evidence of edema or pneumonia. Rounded nodule of the right mid lung may represent the kancahn ent's nipple, superimposition of structures, or a true nodule. Pleural: No significant pleural effusions or pneumothorax. Cardiac: The heart size is within normal limits. Mediastinum: Within normal limits. Bones: No acute fractures. Sternotomy. Other: None IMPRESSION: No acute cardiopulmonary disease. Right mid lung nodule, possibly the patient's nipple, artifact, or a new nodule. Recommend short-term repeat chest radiograph with nipple markers.
[2024-02-29 14:43] VITALS: BP 144/66; TEMP 97.5; O2SAT 100
--- NOTE | 2024-03-02 14:48 | EKG ---
Test Date: 2024-02-28 Test Time: 10:16:49 [employer]: DAYNA MEASUREMENT RESULTS: Intervals: Rate: 65 HI: 170 QRSD: 82 QT: 400 QTc: 416 Sun: P: HI: 170 QRS: 5 T: 141 INTERPRETIVE STATEMENTS: Normal sinus rhythm Septal infarct, age undetermined T wave abnormality, consider lateral ischemia Abnormal ECG Compared to ECG 03/29/2022 11:53:22 T-wave abnormality now present Possible ischemia now present Sinus bradycardia no longer present Left ventricular hypertrophy no longer present Myocardial infarct finding still present Electronically Signed On 03-02-24 14:40:29 CDT by Vidal Goldberg
== END 2024-02-28 13:43 | disposition home or self-care (01) ==
LOC: ER 10:11
DX: R53.1 Weakness (principal); I10 Essential (primary) hypertension; Z95.1 Presence of aortocoronary bypass graft; Z79.01 Long term (current) use of anticoagulants; Z79.82 Long term (current) use of aspirin
CPT/HCPCS: 36415; 71045; 80048; 80076; 83605; 83880; 84484; 85025; 85610; 93005; 99284